=== PATIENT | female | born 1985 | race Caucasian/White ===

== ENCOUNTER 2020-08-31 16:48 | Outpatient (REF) | payer OTHER, SELFPAY | END 2020-08-31 16:49 | disposition home or self-care (01) | LOC: HO.LAB 16:48 | PROVIDERS: Visit Provider Internal Medicine | DX: Z20.828 Contact with and (suspected) exposure to other viral communicable diseases (principal) | CPT/HCPCS: U0003 ==

== ENCOUNTER 2020-09-19 13:12 | Outpatient (REF) | payer OTHER, SELFPAY | END 2020-09-19 13:13 | disposition home or self-care (01) | LOC: HO.LAB 13:12 | PROVIDERS: Visit Provider Internal Medicine | DX: Z20.828 Contact with and (suspected) exposure to other viral communicable diseases (principal) | CPT/HCPCS: C9803; U0003 ==

== ENCOUNTER 2020-10-04 13:29 | Outpatient (REF) | payer OTHER, SELFPAY ==
[2020-10-04 15:25] LABS: HCG Quantitative < 2 mIU/mL
== END 2020-10-04 13:30 | disposition home or self-care (01) ==
LOC: HO.LAB 13:29
PROVIDERS: PCP Internal Medicine; Visit Provider Advanced Practice Midwife
DX: O20.0 Threatened abortion (principal)
CPT/HCPCS: 84702

== ENCOUNTER 2020-10-09 14:57 | Outpatient (REF) | payer OTHER, SELFPAY ==
[2020-10-10 09:22] LABS: BV Int Neg Control Negative (Negative); BV Int Pos Control Positive (Positive)
[2020-10-13 18:12] LABS: CT PCR NOT DETECTED (Not Detect.); NG PCR NOT DETECTED (Not Detect.)
== END 2020-10-09 14:58 | disposition home or self-care (01) ==
LOC: HO.LAB 14:57
PROVIDERS: Visit Provider Advanced Practice Midwife
DX: Z20.2 Contact with and (suspected) exposure to infections with a predominantly sexual mode of transmission (principal); N89.8 Other specified noninflammatory disorders of vagina; Z30.09 Encounter for other general counseling and advice on contraception; R10.2 Pelvic and perineal pain
CPT/HCPCS: 87480; 87491; 87510; 87591; 87660; 99212

== ENCOUNTER 2020-10-16 15:43 | Emergency (ER) | payer OTHER, SELFPAY ==
--- NOTE | 2020-10-16 | ECG_ITS ---
Test Reason : CHESTPAIN Blood Pressure : / mmHG Vent. Rate : 060 BPM Atrial Rate : 060 BPM P-R Int : 152 ms QRS Dur : 082 ms QT Int : 428 ms P-R-T Axes : 014 030 012 degrees QTc Int : 428 ms Normal sinus rhythm Normal ECG When compared with ECG of 22-FEB-2016 21:30, No significant changes seen Referred By: Kelton Garcia Electronically Signed By:Eyal Esposito
[2020-10-16 16:39] VITALS: BP 137/84; PULSE 63; RESP 14; TEMP 36.6; O2SAT 100; BMI 30.2
--- NOTE | 2020-10-16 16:49 | ED.CHESTPAIN ---
HPI - Chest Pain General Chief Complaint: Chest Pain Stated Complaint: CHEST PAIN Time Seen by Provider: 10/16/20 16:48 Source: patient Mode of arrival: ambulatory Limitations: no limitations History of Present Illness HPI narrative: Patient with no known coronary artery disease or risk factors complaining of right-sided chest pain which is sharp for last 2 days denies any shortness of breath or cough , patient got a new job in using the right hand more often also has history of fibromyalgia pain on the right side is continuous get worse on movement of the right hand and on palpation Related Data Previous Rx's Medication Instructions Recorded medroxyprogesterone 150 mg/mL 150 mg IM [id number] #1 ml 10/09/20 intramuscular suspension cyclobenzaprine 10 mg PO Q8H #20 tab 10/16/20 ibuprofen 600 mg PO Q6H PRN #20 tab 10/16/20 metronidazole 500 mg tablet 500 mg PO BID 7 Days #14 tab 10/16/20 Allergies Allergy/AdvReac Type Severity Reaction Status Date / Time No Known Allergies Allergy Mild NOT Verified 10/16/20 16:42 [No Known Allergies*] APPLICABLE Review of Systems Review of Systems: REVIEW OF SYSTEMS: Pertinent positives and negatives are stated above in the history. GEN: no fevers, chills, fatigue HEENT: no nasal congestion, sore throat, ear pain NEURO: no headache, dizziness, focal weakness PULM: no cough, shortness of breath CV: no palpitations, LE edema ABD: no abdominal pain, nausea, vomiting, diarrhea : no dysuria, urgency, frequency SKIN: no rash ROS otherwise negative x 10 PMFSH Past Medical History Medical History Carpal tunnel syndrome Ectopic History of fibromyalgia Hx of Lyme disease Surgical History H/O LEEP Family History Family History Father CVD (cardiovascular disease) Diabetes mellitus Mother Hypertension History of fibromyalgia Paternal Aunt Ovarian cancer Paternal Grandmother History of breast cancer Social History Social History Alcohol intake: current Alcohol intake frequency: does not drink Smoking Status: Never smoker Use of substances other than those prescribed or required for medical reasons: No Advance Directives: No Advance Directives Information Provided: No Physical Exam Vital Signs: Vital Signs: Last Vital Signs Temp 98 F 10/16/20 16:39 Pulse 63 10/16/20 16:39 Resp 14 10/16/20 16:39 BP 137/84 10/16/20 16:39 Pulse Ox 100 10/16/20 16:39 Body Mass Index 30.2 Appearance: Alert. Oriented X3. No acute distress. Eyes: Pupils equal, round and reactive to light. ENT: Pharynx normal. Neck: Normal inspection. Neck supple. CVS: Normal heart rate and rhythm. Pulses normal. Right anterior chest wall tenderness on palpation Respiratory: No respiratory distress. Breath sounds normal. Abdomen: Soft and nontender. Skin: Skin warm and dry. Normal skin color. Normal skin turgor. Extremities: No lower extremity edema. Good range of movement Neuro: Oriented X 3. No motor deficit. No sensory deficit. MDM - Chest Pain Differential Diagnosis Differential diagnosis: Likely atypical chest pain and costochondritis Medical Records Data Attestation: I reviewed the patient's medical records. ECG Data ECG #1: Attestation: I personally reviewed and interpreted this ECG as follows: Interpretation: Normal sinus rhythm with heart rate of 60 normal intervals normal axis no acute ST T wave changes impression: normal EKG Discharge Plan Discharge Clinical Impression: Anterior chest wall pain Patient Disposition: Home, Self-Care Instructions: Chest Wall Pain (ED) Additional Instructions: Rest to the right arm, apply ice take pain medication as advised Prescriptions: New cyclobenzaprine 10 mg tablet 10 mg PO Q8H Qty: 20 RF: 0 ibuprofen 600 mg tablet 600 mg PO Q6H PRN (Reason: pain) Qty: 20 RF: 0 No Action metronidazole [Flagyl] 500 mg tablet 500 mg PO BID 7 Days Qty: 14 RF: 0 medroxyprogesterone [Depo-Provera] 150 mg/mL suspension 150 mg IM [id number] Qty: 1 RF: 3 Interventions: ED Discharge Assessment Last Done: 10/16/20 17:15 Discharge Date/Time: 10/16/20 17:18
[2020-10-16] MEDS: NaPROXEN 500 MG TABLET PO (17:12)
== END 2020-10-16 17:18 | disposition home or self-care (01) ==
PROVIDERS: Emergency Provider Internal Medicine; PCP Internal Medicine
DX: R07.89 Other chest pain (principal)
CPT/HCPCS: 93005; 99283; 99284

== ENCOUNTER 2021-04-11 08:10 | Outpatient (REF) | payer OTHER, SELFPAY ==
[2021-04-11 14:00] LABS: CT PCR NOT DETECTED (Not Detect.); NG PCR NOT DETECTED (Not Detect.)
[2021-04-12 09:39] LABS: BV Int Neg Control Negative (Negative); BV Int Pos Control Positive (Positive)
== END 2021-04-11 08:11 | disposition home or self-care (01) ==
LOC: HO.LAB 08:10
PROVIDERS: PCP Internal Medicine; Visit Provider Advanced Practice Midwife
DX: Z11.3 Encounter for screening for infections with a predominantly sexual mode of transmission (principal); Z20.2 Contact with and (suspected) exposure to infections with a predominantly sexual mode of transmission; N89.8 Other specified noninflammatory disorders of vagina
CPT/HCPCS: 81003; 87480; 87491; 87510; 87591; 87660

== ENCOUNTER 2021-05-02 13:32 | Outpatient (REF) | payer OTHER, SELFPAY ==
[2021-05-02 13:53] LABS: MANUAL DIFF FLAG NO
[2021-05-02 13:59] LABS: Basophils Absolute Auto 0.1 X10*3/uL (0.0-0.2); Basophils Percent Auto 0.6 % (0-2); Eosinophils Percent Auto 0.4 % (0-4); Hematocrit 35.8 % (37-47); Hemoglobin 11.2 g/dl (12.0-16.0); Imm Gran Abs Auto 0.03 X10*3/uL (0.00-0.03); Imm Gran Pct Auto 0.3 % (0.0-0.4); Lymphocytes Absolute Auto 2.5 X10*3/uL (1.2-4.9); Lymphocytes Percent Auto 27.9 % (20-40); Mean Corpuscular HGB Conc 31.3 g/dl (31.0-35.0); Mean Corpuscular Hemoglobin 24.7 pg (27.0-33.0); Mean Corpuscular Volume 78.9 fL (80-98); Mean Platelet Volume 10.5 fL (9.4-12.3); Monocytes Absolute Auto 0.5 X10*3/uL (0.1-1.2); Monocytes Percent Auto 5.8 % (2-11); Neutrophils Absolute Auto 5.8 X10*3/uL (2.0-8.3); Platelet Count 329 X10*3/uL (160-400); Red Blood Count 4.54 X10*6/uL (4.20-5.50); Red Cell Distribution Width 15.3 % (11.0-16.0); White Blood Count 8.9 X10*3/uL (4.8-10.8)
[2021-05-02 14:55] LABS: Syphilis Screen Nonreactive (Nonreactive)
[2021-05-02 15:13] LABS: Alanine Aminotransferase 10 U/L (0-31); Albumin Level 4.2 g/dL (3.5-5.0); Alkaline Phosphatase 52 U/L (39-117); Anion Gap 10 (12-20); Aspartate Amino Transferase 16 U/L (5-31); Bilirubin Total 0.2 mg/dL (0.0-1.0); Blood Urea Nitrogen 11 mg/dL (9-16); Calcium 9.4 mg/dL (8.4-10.2); Carbon Dioxide 27 mmol/L (22-29); Chloride 107 mmol/L (96-108); Estimated Glomerular Filt Rate > 60; Glucose Random 87 mg/dL (60-115); Potassium 4.4 mmol/L (3.3-5.1); Sodium 140 mmol/L (135-145); Total Protein 6.8 g/dL (6.5-8.0)
[2021-05-04 04:26] LABS: HBS Num1 214.51 mIU/mL (0-7.99); HBc Num1 0.02 S/CO (0.00-0.79); HBsAGNum1 0.19 S/CO (0.00-0.99); HIV AB/AG Nonreactive (Nonreactive); HIV Num 1 0.08 S/CO (0.00-0.99); Hepatitis B Core Antibody Nonreactive (Nonreactive); Hepatitis B Surface Antigen Negative (Negative); ~Hepatitis B Surface Antibody REACTIVE (Nonreactive)
[2021-05-04 04:38] LABS: ~HepC Num1 0.05 S/CO (0.00-0.79); ~Hepatitis C Antibody Nonreactive (Nonreactive)
[2021-05-08 13:37] LABS: HSV 1 IgM IFA Positive (Negative); HSV 1 IgM Titer 1:20 (<1:20); HSV 2 IgM IFA Positive (Negative); HSV 2 IgM Titer 1:20 (<1:20)
== END 2021-05-02 13:33 | disposition home or self-care (01) ==
LOC: HO.LAB 13:32
PROVIDERS: PCP Internal Medicine; Visit Provider Internal Medicine
DX: Z01.84 Encounter for antibody response examination (principal); Z11.59 Encounter for screening for other viral diseases; Z11.4 Encounter for screening for human immunodeficiency virus [HIV]; R10.11 Right upper quadrant pain; R53.83 Other fatigue; E66.9 Obesity, unspecified; Z20.2 Contact with and (suspected) exposure to infections with a predominantly sexual mode of transmission
CPT/HCPCS: 36415; 80053; 84443; 85025; 86695; 86696; 86704; 86706; 86780; 86803; 87340; 87389

== ENCOUNTER → 2021-05-18 11:37 | Outpatient (BNVA) | payer OTHER, SELFPAY | PROVIDERS: Visit Provider Advanced Practice Midwife ==

== ENCOUNTER 2021-05-22 11:12 | Outpatient (REF) | payer OTHER, SELFPAY ==
--- NOTE | ~2021-05-22 | US_ITS ---
EXAMINATION: PELVIC ULTRASOUND CLINICAL INFORMATION: Pelvic pain COMPARISON: Previous pelvic ultrasound June 2015 TECHNIQUE: Transabdominal and transvaginal pelvic ultrasound was performed. Transvaginal exam was ordered uterus and ovaries. FINDINGS: The uterus is anteverted and measures 10.8 x 3.9 x 6.6 cm in dimension. No focal uterine lesion is seen. The endometrium appears thickened measuring 2.4 cm. There is a 0.2 x 0.3 x 0.3 cm cyst in the endometrium with thick echogenic wall questionable for a gestational sac. Mean sac diameter would suggest gestational age of 4 weeks 5 days. There are nabothian cysts in the cervix. The right ovary measures 2.1 x 1.6 x 1.2 cm. There is a 0.5 cm nonspecific hyperechoic area in the right ovary. This is not appreciated on previous exam. The left ovary measures 4.7 x 2 x 2.2 cm. There are 2 left ovarian cysts. There is a 1.9 x 1.4 x 2.4 minimally complex cyst with single septation and a 1.2 x 0.9 x 1.1 cm exophytic simple cyst. There is no fluid in the pelvis. US/US pelvic and transvaginal IMPRESSION: Thickened endometrium. 2 x 3 x 3 mm cyst in the endometrium with thick echogenic wall questionable for a gestational sac. Mean sac diameter would suggest gestational age of 4 weeks 5 days. Small left ovarian cysts.
== END 2021-05-22 11:13 | disposition home or self-care (01) ==
LOC: HO.US 11:12
PROVIDERS: PCP Internal Medicine; Visit Provider Advanced Practice Midwife
DX: R10.2 Pelvic and perineal pain (principal)
CPT/HCPCS: 76830; 76856

== ENCOUNTER 2021-05-24 12:55 | Outpatient (REF) | payer OTHER, SELFPAY ==
[2021-05-24 14:45] LABS: HCG Quantitative 2654 mIU/mL
== END 2021-05-24 12:56 | disposition home or self-care (01) ==
LOC: HO.LAB 12:55
PROVIDERS: PCP Internal Medicine; Visit Provider Advanced Practice Midwife
DX: Z34.90 Encounter for supervision of normal pregnancy, unspecified, unspecified trimester (principal); Z87.59 Personal history of other complications of pregnancy, childbirth and the puerperium
CPT/HCPCS: 36415; 84702

== ENCOUNTER 2021-05-28 11:38 | Outpatient (REF) | payer OTHER, SELFPAY ==
[2021-05-28 13:17] LABS: HCG Quantitative 7703 mIU/mL
== END 2021-05-28 11:39 | disposition home or self-care (01) ==
LOC: HO.LAB 11:38
PROVIDERS: PCP Internal Medicine; Visit Provider Advanced Practice Midwife
DX: Z34.90 Encounter for supervision of normal pregnancy, unspecified, unspecified trimester (principal); Z87.59 Personal history of other complications of pregnancy, childbirth and the puerperium
CPT/HCPCS: 36415; 84702

== ENCOUNTER 2021-05-31 13:06 | Outpatient (REF) | payer OTHER, SELFPAY ==
--- NOTE | ~2021-05-31 | US_ITS ---
EXAMINATION: ULTRASOUND OB PELVIC AND TRANSVAGINAL CLINICAL INFORMATION: History of ectopic . COMPARISON: Ultrasound OB 02/11/2020 TECHNIQUE: Transabdominal and transvaginal imaging of pelvis is performed. FINDINGS: There is a single intrauterine gestational sac and a single pole. The crown-rump length measures 0.26 cm corresponding to 5 weeks 6 days and ATUL of 01/25/2022. Based on LMP of 04/17/2021 the clinical gestational age is 6 weeks 2 days and ATUL of 01/22/2022. There is visualization of pole, yolk sac, gestational sac and a heart rate of 110 bpm. The right ovary measures 2.6 x 1.7 x 1.7 cm and appears unremarkable. The left ovary measures 4.7 x 2.1 x 2.9 cm. There is a small corpus luteal cyst measuring 2.4 x 1.4 x 2.5 cm. There is no free fluid in cul-de-sac. US/US OB pelvic and transvaginal IMPRESSION: Single live intrauterine fetus with a crown-rump length measuring 5 weeks and 6 days and ATUL of 01/25/2022. There is a small corpus luteal cyst in the left ovary.
== END 2021-05-31 13:07 | disposition home or self-care (01) ==
LOC: HO.HMGCX 13:06
PROVIDERS: PCP Internal Medicine; Visit Provider Advanced Practice Midwife
DX: Z34.91 Encounter for supervision of normal pregnancy, unspecified, first trimester (principal)
CPT/HCPCS: 76801; 76817

== ENCOUNTER → 2021-06-05 15:45 | Outpatient (BNVA) | payer OTHER, SELFPAY | PROVIDERS: PCP Internal Medicine; Visit Provider Advanced Practice Midwife ==

== ENCOUNTER → 2021-06-11 14:19 | Outpatient (BNVA) | payer OTHER, SELFPAY | PROVIDERS: PCP Internal Medicine; Visit Provider Advanced Practice Midwife | DX: R79.89 Other specified abnormal findings of blood chemistry (principal); Z64.0 Problems related to unwanted pregnancy | CPT/HCPCS: 99212 ==

== ENCOUNTER 2021-07-02 20:57 | Emergency (ER) | payer OTHER, SELFPAY ==
[2021-07-02 21:36] VITALS: BP 145/74; PULSE 87; RESP 15; TEMP 37; O2SAT 100; BMI 26.5
[2021-07-02] MEDS: Ondansetron ODT 4 MG TAB.RAPDIS SUBLINGUAL (21:42)
[2021-07-02 23:38] LABS: Basophils Absolute Auto 0.1 X10*3/uL (0.0-0.2); Basophils Percent Auto 0.3 % (0-2); Eosinophils Percent Auto 0.3 % (0-4); Hematocrit 36.1 % (37-47); Hemoglobin 11.6 g/dl (12.0-16.0); Imm Gran Abs Auto 0.08 X10*3/uL (0.00-0.03); Imm Gran Pct Auto 0.5 % (0.0-0.4); Lymphocytes Absolute Auto 2.4 X10*3/uL (1.2-4.9); Lymphocytes Percent Auto 15.5 % (20-40); Mean Corpuscular HGB Conc 32.1 g/dl (31.0-35.0); Mean Corpuscular Hemoglobin 25.2 pg (27.0-33.0); Mean Corpuscular Volume 78.3 fL (80-98); Mean Platelet Volume 10.3 fL (9.4-12.3); Monocytes Percent Auto 6.3 % (2-11); Neutrophils Absolute Auto 12.1 X10*3/uL (2.0-8.3); Neutrophils Percent Auto 77.1 % (45-73); Platelet Count 331 X10*3/uL (160-400); Red Blood Count 4.61 X10*6/uL (4.20-5.50); Red Cell Distribution Width 14.7 % (11.0-16.0); White Blood Count 15.7 X10*3/uL (4.8-10.8)
[2021-07-02 23:39] LABS: MANUAL DIFF FLAG NO
[2021-07-02 23:52] LABS: Alanine Aminotransferase 12 U/L (0-31); Albumin Level 4.1 g/dL (3.5-5.0); Alkaline Phosphatase 52 U/L (39-117); Anion Gap 13 (12-20); Aspartate Amino Transferase 14 U/L (5-31); Bilirubin Direct < 0.2 mg/dL (0.0-0.5); Bilirubin Total 0.3 mg/dL (0.0-1.0); Blood Urea Nitrogen 7 mg/dL (9-16); Calcium 9.5 mg/dL (8.4-10.2); Carbon Dioxide 21 mmol/L (22-29); Chloride 107 mmol/L (96-108); Creatinine Clr Calc Pharmacy 110.2; Estimated Glomerular Filt Rate > 60; Glucose Random 97 mg/dL (60-115); Lipase 25 U/L (8-78); Potassium 3.9 mmol/L (3.3-5.1); Sodium 137 mmol/L (135-145); Total Protein 7.1 g/dL (6.5-8.0)
[2021-07-03 00:27] VITALS: BP 114/75; PULSE 74; RESP 12; TEMP 36.9; O2SAT 100
[2021-07-03 00:36] LABS: Glucose Urine UA NEG (NEG); Leukocyte Esterase Urine NEG (NEG); Nitrite Urine NEG (NEG); PH 6.5 (5.0-8.0); Specific Gravity - Urine 1.025 (1.005-1.025); UACC Culture Trigger NO; Urine Blood NEG (NEG); Urine Ketones 40 MG/DL (NEG); Urine Protein 1+ MG/DL (NEG-TRACE)
[2021-07-03 00:39] LABS: Appearance Urine HAZY; Color Urine DARK YELLOW
[2021-07-03 00:51] LABS: Bacteria Urine TRACE /LPF; Mucus Urine 4+ /LPF; RBC Urine 0 /HPF (0); Squamous Epithelial Cell Urine 1+ /LPF; WBC Urine 0-2 /HPF (0-4)
[2021-07-03 00:58] LABS: COVID-19 Test Negative (Negative); IDNOW Serial# 9DD0AD1C
[2021-07-03] MEDS: 0.9 % Sodium Chloride 2,000 ML 999 ML IV (01:22)
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
[2021-07-03 03:28] VITALS: BP 124/74; PULSE 75; RESP 22; O2SAT 100
== END 2021-07-03 04:20 | disposition home or self-care (01) ==
PROVIDERS: Emergency Provider Student in an Organized Health Care Education/Training Program; PCP Internal Medicine
DX: O21.1 Hyperemesis gravidarum with metabolic disturbance (principal); Z3A.10 10 weeks gestation of pregnancy; Z79.899 Other long term (current) drug therapy; Z20.822 Contact with and (suspected) exposure to COVID-19
CPT/HCPCS: 36415; 80048; 80076; 81001; 83690; 85025; 87635; 96360; 96361; 99284

== ENCOUNTER 2021-07-13 12:27 | Emergency (ER) | payer OTHER, SELFPAY ==
[2021-07-13] VITALS (7 sets, daily range): BP systolic 106–131; BP diastolic 52–85; PULSE 66–80; RESP 16–18; TEMP 36.8–37.5; O2SAT 99–100; BMI 29.2
--- NOTE | ~2021-07-13 | CT_ITS ---
EXAMINATION: CT ABDOMEN AND PELVIS WITH CONTRAST CLINICAL INFORMATION: Therapeutic today. Severe abdominal pain. COMPARISON: 07/11/2020 TECHNIQUE: Multidetector volumetric images were obtained from the superior aspect of the liver through the pubic symphysis following administration 85 mL of Omnipaque 350 intravenous contrast. Sagittal and coronal reformatted images were obtained on the technologist's workstation. Oral contrast: No This CT examination was performed using dose optimization techniques as appropriate, variously including the following: *Automated exposure control *Adjustment of mA and/or kV according to patient size (this includes techniques or standardized protocols for targeted exams where dose is matched to indication/reason for exam; i.e. extremities or head) *Use of iterative reconstruction technique DLP: 581 mGy-cm FINDINGS: LUNG BASES: The visualized lung bases are unremarkable. LIVER, GALLBLADDER, AND BILIARY TREE: The liver is normal in size, shape, and attenuation. No focal hepatic lesion or biliary ductal dilatation is present. The gallbladder is unremarkable with no evidence of radiopaque gallstones, gallbladder wall thickening, or obvious pericholecystic inflammatory changes. PANCREAS: Unremarkable. SPLEEN: Unremarkable. ADRENAL GLANDS: Unremarkable. KIDNEYS AND URETERS: The kidneys are normal in size, shape, and attenuation. No hydronephrosis, hydroureter, or calculi seen. No perinephric stranding. BLADDER: Unremarkable. GASTROINTESTINAL TRACT: The small and large bowel are unremarkable. The appendix is unremarkable. ABDOMINAL WALL: No significant hernia is appreciated. LYMPH NODES: Normal. VASCULAR: Unremarkable. PELVIC VISCERA: Anteverted uterus. Enlarged uterus consistent with recent gravid state with diffuse heterogeneity. Fluid in the upper vagina noted with gas seen in the cervix. OSSEOUS STRUCTURES: Unremarkable. CT/CT abdomen pelvis w con IMPRESSION: Enlarged heterogeneous uterus cyst with recent gravid state. Gas in the cervical canal with fluid in the vagina. No free intraperitoneal air. No significant pelvic fluid.
[2021-07-13 13:21] LABS: Basophils Absolute Auto 0.1 X10*3/uL (0.0-0.2); Basophils Percent Auto 0.3 % (0-2); Hematocrit 32.4 % (37-47); Hemoglobin 10.6 g/dl (12.0-16.0); Imm Gran Abs Auto 0.39 X10*3/uL (0.00-0.03); Imm Gran Pct Auto 1.2 % (0.0-0.4); Lymphocytes Absolute Auto 1.9 X10*3/uL (1.2-4.9); Lymphocytes Percent Auto 5.9 % (20-40); MANUAL DIFF FLAG SCAN; Mean Corpuscular HGB Conc 32.7 g/dl (31.0-35.0); Mean Corpuscular Hemoglobin 25.6 pg (27.0-33.0); Mean Corpuscular Volume 78.3 fL (80-98); Mean Platelet Volume 10.5 fL (9.4-12.3); Monocytes Absolute Auto 1.8 X10*3/uL (0.1-1.2); Monocytes Percent Auto 5.6 % (2-11); Neutrophils Absolute Auto 28.5 X10*3/uL (2.0-8.3); Platelet Count 248 X10*3/uL (160-400); Red Blood Count 4.14 X10*6/uL (4.20-5.50); Red Cell Distribution Width 14.6 % (11.0-16.0); SCAN SMEAR FLAG 1
[2021-07-13 13:23] LABS: White Blood Count 32.8 X10*3/uL (4.8-10.8)
--- NOTE | 2021-07-13 13:25 | PC.NURSE ---
critical wbc reported 32.8 reported to md saucedo
[2021-07-13] MEDS: Ondansetron ODT 4 MG TAB.RAPDIS SUBLINGUAL (13:28)
[2021-07-13 13:37] LABS: Alanine Aminotransferase 6 U/L (0-31); Albumin Level 4.1 g/dL (3.5-5.0); Alkaline Phosphatase 50 U/L (39-117); Anion Gap 15 (12-20); Aspartate Amino Transferase 13 U/L (5-31); Bilirubin Total 0.7 mg/dL (0.0-1.0); Blood Urea Nitrogen 11 mg/dL (9-16); Calcium 9.8 mg/dL (8.4-10.2); Carbon Dioxide 20 mmol/L (22-29); Chloride 106 mmol/L (96-108); Creatinine Clr Calc Pharmacy 93.6; Estimated Glomerular Filt Rate > 60; Glucose Random 125 mg/dL (60-115); Potassium 4.1 mmol/L (3.3-5.1); Sodium 137 mmol/L (135-145); Total Protein 6.9 g/dL (6.5-8.0)
[2021-07-13 13:39] LABS: SLIDE REVIEW VERIFIED
[2021-07-13] MEDS: Acetaminophen 325 MG TABLET 650 MG PO (15:15)
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
[2021-07-13] MEDS: Morphine Sulfate 4 MG/ML CARTRIDGE IVPUSH ×2 (16:41→19:13)
[2021-07-13] MEDS: 0.9 % Sodium Chloride 1,000 ML 999 ML IV (16:41)
[2021-07-13] MEDS: ondansetron HCL 4 MG/2 ML VIAL IVPUSH (16:41)
[2021-07-13] MEDS: Piperacillin Sodium/Tazobactam 4.5 GM in 0.9 % Sodium Chloride 100 ML IV (16:54)
[2021-07-13 16:58] LABS: Lactic Acid 2.2 mmol/L (0.5-2.0)
[2021-07-13 17:09] LABS: Lipase 25 U/L (8-78)
[2021-07-13] MEDS: iohexoL 350 MG/ML 100 ML INFUS..BTL IV (17:19)
[2021-07-13] MEDS: 0.9 % Sodium Chloride 2,177.25 ML 2177.25 ML IV (17:42)
[2021-07-13 18:29] LABS: COVID-19 Test Negative (Negative)
[2021-07-13 18:34] LABS: Reflex Lactate? Lactic Acid Added
[2021-07-13 18:38] LABS: HCG Quantitative 9100 mIU/mL
[2021-07-13 19:09] LABS: Appearance Urine HAZY; Color Urine YELLOW; Glucose Urine UA NEG (NEG); Leukocyte Esterase Urine NEG (NEG); Nitrite Urine NEG (NEG); Specific Gravity - Urine <= 1.005 (1.005-1.025); UACC Culture Trigger NO; Urine Blood 3+ (NEG); Urine Ketones 15 MG/DL (NEG); Urine Protein TRACE MG/DL (NEG-TRACE)
[2021-07-13 19:21] LABS: Bacteria Urine TRACE /LPF; RBC Urine 50-75 /HPF (0); Squamous Epithelial Cell Urine TRACE /LPF; WBC Urine 0-2 /HPF (0-4)
== END 2021-07-13 20:03 | disposition home or self-care (01) ==
PROVIDERS: Emergency Provider Emergency Medicine Emergency Medical Services; PCP Internal Medicine
DX: R10.2 Pelvic and perineal pain (principal); Z20.822 Contact with and (suspected) exposure to COVID-19; Z79.899 Other long term (current) drug therapy
CPT/HCPCS: 36415; 74177; 80053; 81001; 83605; 83690; 84702; 85025; 86850; 86900; 86901; 87040; 87635; 96361; 96374; 96375; 96376; 99284; J2270; J2405; J2543; Q9967

== ENCOUNTER 2021-07-18 05:15 | Day surgery (SDC) | payer OTHER, SELFPAY ==
[2021-07-18] VITALS (10 sets, daily range): BP systolic 111–134; BP diastolic 56–95; PULSE 68–87; RESP 17–18; TEMP 36.3–37.1; O2SAT 99–100; BMI 26.6
--- NOTE | ~2021-07-18 | US_ITS ---
EXAMINATION: US PELVIS CLINICAL INFORMATION: Post therapeutic 07/11/2021. Bleeding/clot. COMPARISON: None TECHNIQUE: Ultrasound of the pelvis is performed using both transabdominal and transvaginal transducers along with Doppler. Transvaginal imaging is performed due to inadequate visualization transabdominally. FINDINGS: The uterus is anteverted and measures 12.8 x 6.3 x 7.9 cm. No focal uterine lesion is seen. The endometrium is thickened measuring 2.4 cm. There is some fluid seen in the endometrial cavity. The endometrium does not appear hypervascular. The ovaries are normal. The right ovary measures 2.3 x 1.1 x 2.3 cm. The left ovary measures 2.9 x 2.3 x 1.9 cm. There is no fluid in the pelvis. US/US pelvic complete IMPRESSION: Abnormally thickened endometrium measuring 2.4 cm with fluid in the endometrial cavity. The endometrium does not appear hypervascular. Differential would include blood clot, endometritis or retained products of conception.
--- NOTE | ~2021-07-18 | US_ITS ---
EXAMINATION: US pelvic, LIMITED/FOLLOW UP CLINICAL INFORMATION: Retained products of conception COMPARISON: Previous pelvic ultrasound from earlier the same day TECHNIQUE/findings: Intraoperative transabdominal pelvic ultrasound was performed during procedure. There is a small amount of fluid in seen in the endometrial cavity. There is air in the endometrial cavity postprocedure. US/US pelvic limited IMPRESSION: :
--- NOTE | 2021-07-18 05:30 | PC.NURSE ---
patient in the restroom in the waiting room, unable to triage at this time. patient given wheel chair stating feeling dizzy, say the asphalt spreader today. has been passing clots asking to get an ambulance to [facility] where she would like to receive care.
[2021-07-18 06:03] LABS: Basophils Percent Auto 0.4 % (0-2); Eosinophils Absolute Auto 0.1 X10*3/uL (0.0-0.4); Eosinophils Percent Auto 1.1 % (0-4); Hematocrit 25.7 % (37-47); Hemoglobin 8.3 g/dl (12.0-16.0); Imm Gran Abs Auto 0.15 X10*3/uL (0.00-0.03); Imm Gran Pct Auto 1.4 % (0.0-0.4); Lymphocytes Absolute Auto 1.9 X10*3/uL (1.2-4.9); Lymphocytes Percent Auto 17.6 % (20-40); MANUAL DIFF FLAG NO; Mean Corpuscular HGB Conc 32.3 g/dl (31.0-35.0); Mean Corpuscular Hemoglobin 26.2 pg (27.0-33.0); Mean Corpuscular Volume 81.1 fL (80-98); Mean Platelet Volume 10.4 fL (9.4-12.3); Monocytes Absolute Auto 0.7 X10*3/uL (0.1-1.2); Monocytes Percent Auto 6.5 % (2-11); Neutrophils Absolute Auto 7.9 X10*3/uL (2.0-8.3); Platelet Count 233 X10*3/uL (160-400); Red Blood Count 3.17 X10*6/uL (4.20-5.50); Red Cell Distribution Width 14.8 % (11.0-16.0); White Blood Count 10.8 X10*3/uL (4.8-10.8)
[2021-07-18 06:21] LABS: Alanine Aminotransferase 9 U/L (0-31); Albumin Level 3.5 g/dL (3.5-5.0); Alkaline Phosphatase 41 U/L (39-117); Anion Gap 11 (12-20); Aspartate Amino Transferase 12 U/L (5-31); Bilirubin Total 0.3 mg/dL (0.0-1.0); Blood Urea Nitrogen 8 mg/dL (9-16); Calcium 8.7 mg/dL (8.4-10.2); Carbon Dioxide 22 mmol/L (22-29); Chloride 110 mmol/L (96-108); Creatinine Clr Calc Pharmacy 113.1; Estimated Glomerular Filt Rate > 60; Glucose Random 109 mg/dL (60-115); Potassium 3.7 mmol/L (3.3-5.1); Sodium 139 mmol/L (135-145); Total Protein 5.9 g/dL (6.5-8.0)
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
[2021-07-18 07:35] LABS: HCG Quantitative 234 mIU/mL
--- NOTE | 2021-07-18 08:16 | PC.NURSE ---
pt in bathroom, large clot on pad and pt has s large amount of blood inthe toilet. PCT completing Type and screen now
[2021-07-18] MEDS: 0.9 % Sodium Chloride 1,000 ML 999 ML IV (08:39)
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
--- NOTE | 2021-07-18 09:34 | PC.NURSE ---
pt tearful, feeling scared. aware of plan to go to OR. Pt educated on change management manager and medication administration. Awaiting COVID results before transport
[2021-07-18 09:39] LABS: COVID-19 Test Negative (Negative)
--- NOTE | 2021-07-18 10:37 | P.BOP_ITS ---
Brief Operative Note Date of Service: 07/18/21 Pre-op diagnosis: Retained products of conception Post-op diagnosis: same Procedure: Suction D&C Surgeon: Michel Duncan MD Anesthesia: MAC Was an Social Media Coordinator used for this Procedure?: No Estimated blood loss (mL): 100 Pathology: other (Products of conception) Condition: stable Disposition: PACU
--- NOTE | 2021-07-18 10:37 | P.OP_ITS ---
Operative Note Operative Note Date of Service: 07/18/21 Narrative: Preop diagnosis: Retained products of conception Operation: suction D and C under ultrasound guidance Postop diagnosis: The same EBL: 100 cc Anesthesia: MAC Surgeon: Michel Duncan MD, FACOG Avionics Test Technician: None Pathology: Retained Products of conception Complications: None Procedure: The patient was put in a dorsal distal mid position was scrubbed and draped in the usual sterile fashion. A sterile speculum was inserted inside the patient's vagina the anterior lip of the cervix was grasped with single-tooth tenaculum the cervix was dilated up to 7 mm. Under ultrasonographic guidance flexible 8 mm. Suction tip was introduced inside the patient ran cavity till the fundus was hit then turning the suction 360 degrees around products of conception was sucked out toward the uterine cavity. The suction tip was taken out of the patient uterine cavity sharp curettings was followed in 4 quadrants of the uterus till a gritty feeling was felt. The suction tip was reintroduced under ultrasonographic guidance and intrauterine blood was sucked. The suction tip was taken out. Single-tooth tenaculum was removed hemostasis assured using pressure. The patient tolerated the procedure well and was transferred to the PACU in a stable condition.
== END 2021-07-18 12:07 | disposition home or self-care (01) ==
LOC: HO.ED 10:47 → HO.SSS 11:56
PROVIDERS: Emergency Provider Emergency Medicine; PCP Internal Medicine; Visit Provider Obstetrics & Gynecology
PROC: (CPT 59812; principal; 2021-07-18 09:40)
DX: O07.39 Failed attempted termination of pregnancy with other complications (principal); O07.1 Delayed or excessive hemorrhage following failed attempted termination of pregnancy; D64.9 Anemia, unspecified; Z20.822 Contact with and (suspected) exposure to COVID-19; Z87.59 Personal history of other complications of pregnancy, childbirth and the puerperium
CPT/HCPCS: 59812; 36415; 36430; 76856; 76857; 80053; 84702; 85025; 86850; 86900; 86901; 86923; 87491; 87591; 87635; 88305; 96361; 96374; 96375; 99283; 99284; 99291; J0330; J2250; J2405; J2590; J2765; J3010; P9016

== ENCOUNTER → 2021-08-07 12:14 | Outpatient (BNVA) | payer OTHER, SELFPAY | PROVIDERS: Visit Provider Obstetrics & Gynecology ==

== ENCOUNTER 2021-09-11 08:16 | Outpatient (REF) | payer OTHER, SELFPAY ==
[2021-09-11 08:54] LABS: COVID-19 Test Negative (Negative)
== END 2021-09-11 08:17 | disposition home or self-care (01) ==
LOC: HO.LAB 08:16
PROVIDERS: PCP Internal Medicine; Visit Provider Internal Medicine
DX: Z20.822 Contact with and (suspected) exposure to COVID-19 (principal)
CPT/HCPCS: 36415; 87635; C9803

== ENCOUNTER 2021-10-23 10:09 | Outpatient (REF) | payer OTHER, SELFPAY ==
[2021-10-23 10:57] LABS: Hematocrit 38.3 % (37.0-47.0); Hemoglobin 11.7 g/dl (12.0-16.0); Mean Corpuscular HGB Conc 30.5 g/dl (31.0-35.0); Mean Corpuscular Hemoglobin 24.3 pg (27.0-33.0); Mean Corpuscular Volume 79.5 fL (80.0-98.0); Mean Platelet Volume 11.7 fL (9.4-12.3); Platelet Count 148 X10*3/uL (160-400); Red Blood Count 4.82 X10*6/uL (4.20-5.50); Red Cell Distribution Width 15.3 % (11.0-16.0); White Blood Count 9.2 X10*3/uL (4.8-10.8)
[2021-10-23 11:28] LABS: HCG Quantitative < 2 mIU/mL
== END 2021-10-23 10:10 | disposition home or self-care (01) ==
LOC: HO.LAB 10:09
PROVIDERS: PCP Internal Medicine; Visit Provider Obstetrics & Gynecology
DX: D64.9 Anemia, unspecified (principal); R53.83 Other fatigue; M79.7 Fibromyalgia; Z86.61 Personal history of infections of the central nervous system
CPT/HCPCS: 36415; 84702; 85027

== ENCOUNTER 2021-11-07 11:44 | Outpatient (REF) | payer OTHER, SELFPAY ==
[2021-11-07 14:02] LABS: Binax Internal Control QC Valid; Binax Now Covid-19 Ag Negative (Negative)
== END 2021-11-07 11:45 | disposition home or self-care (01) ==
LOC: HO.LAB 11:44
PROVIDERS: Visit Provider Internal Medicine
DX: Z20.822 Contact with and (suspected) exposure to COVID-19 (principal)
CPT/HCPCS: 36415; C9803

== ENCOUNTER 2021-12-18 10:19 | Outpatient (REF) | payer OTHER, SELFPAY ==
[2021-12-18 14:12] LABS: CT PCR NOT DETECTED (Not Detect.); NG PCR NOT DETECTED (Not Detect.)
[2021-12-19 13:10] LABS: BV Int Neg Control Negative (Negative); BV Int Pos Control Positive (Positive)
== END 2021-12-18 10:20 | disposition home or self-care (01) ==
LOC: HO.LAB 10:19
PROVIDERS: Visit Provider Advanced Practice Midwife
DX: N76.0 Acute vaginitis (principal); Z20.2 Contact with and (suspected) exposure to infections with a predominantly sexual mode of transmission
CPT/HCPCS: 87480; 87491; 87510; 87591; 87660; 99212

== ENCOUNTER 2022-04-18 09:46 | Outpatient (REF) | payer OTHER, SELFPAY ==
[2022-04-19 01:18] LABS: CT PCR NOT DETECTED (Not Detect.); NG PCR NOT DETECTED (Not Detect.)
[2022-04-19 08:32] LABS: BV Int Neg Control Negative (Negative); BV Int Pos Control Positive (Positive)
[2022-04-22 21:27] LABS: HPV mRNA E6/E7 rflx Not Detected (Not Detected)
== END 2022-04-18 09:47 | disposition home or self-care (01) ==
LOC: HO.LAB 09:46
PROVIDERS: Visit Provider Advanced Practice Midwife
DX: Z01.419 Encounter for gynecological examination (general) (routine) without abnormal findings (principal); Z11.3 Encounter for screening for infections with a predominantly sexual mode of transmission; Z11.51 Encounter for screening for human papillomavirus (HPV)
CPT/HCPCS: 87480; 87491; 87510; 87591; 87624; 87660; 88142

== ENCOUNTER 2022-05-02 09:12 | Outpatient (REF) | payer OTHER, SELFPAY ==
[2022-05-02 11:33] LABS: Alanine Aminotransferase 8 U/L (0-31); Albumin Level 4.5 g/dL (3.5-5.0); Alkaline Phosphatase 54 U/L (39-117); Aspartate Amino Transferase 13 U/L (5-31); Bilirubin Direct < 0.2 mg/dL (0.0-0.5); Bilirubin Total 0.3 mg/dL (0.0-1.0); Lipase 44 U/L (8-78); Total Protein 7.4 g/dL (6.5-8.0)
[2022-05-02 11:42] LABS: HBsAGNum1 0.27 S/CO (0.00-0.99); HIV AB/AG Nonreactive (Nonreactive); HIV Num 1 0.11 S/CO (0.00-0.99); Hepatitis B Surface Antigen Negative (Negative); ~HepC Num1 0.08 S/CO (0.00-0.79); ~Hepatitis C Antibody Nonreactive (Nonreactive)
[2022-05-03 07:44] LABS: Syphilis Screen Nonreactive (Nonreactive)
[2022-05-04 08:27] LABS: Transglutaminase Ab IgG <1.0 U/mL; Transglutaminase IgA <1.0 U/mL
[2022-05-08 17:33] LABS: Vitamin D 25-OH, D2 <4 ng/mL; Vitamin D 25-OH, D3 16 ng/mL; Vitamin D 25-OH, Total 16 ng/mL (30-100)
== END 2022-05-02 09:13 | disposition home or self-care (01) ==
LOC: HO.LAB 09:12
PROVIDERS: Nurse Practitioner Family; PCP Internal Medicine; Visit Provider Advanced Practice Midwife
DX: Z11.4 Encounter for screening for human immunodeficiency virus [HIV] (principal); Z11.3 Encounter for screening for infections with a predominantly sexual mode of transmission; R10.9 Unspecified abdominal pain; E55.9 Vitamin D deficiency, unspecified; R10.84 Generalized abdominal pain; K21.9 Gastro-esophageal reflux disease without esophagitis; K59.01 Slow transit constipation
CPT/HCPCS: 36415; 80076; 82306; 83690; 86364; 86780; 86803; 87340; 87389; 99202; 99212

== ENCOUNTER 2022-10-30 08:35 | Emergency (ER) | payer OTHER, SELFPAY ==
--- NOTE | ~2022-10-30 | CT_ITS ---
EXAMINATION: CT ABDOMEN AND PELVIS WITH CONTRAST CLINICAL INFORMATION: Right lower quadrant/CVA/suprapubic pain COMPARISON: Pelvic ultrasound and CT of the abdomen and pelvis July 2021 TECHNIQUE: Multidetector volumetric images were obtained from the superior aspect of the liver through the pubic symphysis following administration 85 mL of Omnipaque 350 intravenous contrast. Sagittal and coronal reformatted images were obtained on the technologist's workstation. Oral contrast: Yes This CT examination was performed using dose optimization techniques as appropriate, variously including the following: *Automated exposure control *Adjustment of mA and/or kV according to patient size (this includes techniques or standardized protocols for targeted exams where dose is matched to indication/reason for exam; i.e. extremities or head) *Use of iterative reconstruction technique DLP: 805 mGy-cm FINDINGS: LUNG BASES: The visualized lung bases are unremarkable. LIVER, GALLBLADDER, AND BILIARY TREE: The liver is normal in size, shape, and attenuation. No focal hepatic lesion or biliary ductal dilatation is present. The gallbladder is unremarkable with no evidence of radiopaque gallstones, gallbladder wall thickening, or obvious pericholecystic inflammatory changes. PANCREAS: Unremarkable. SPLEEN: Unremarkable. ADRENAL GLANDS: Unremarkable. KIDNEYS AND URETERS: The kidneys are normal in size, shape, and attenuation. No hydronephrosis, hydroureter, or calculi seen. No perinephric stranding. BLADDER: Unremarkable. GASTROINTESTINAL TRACT: The small and large bowel are unremarkable. The appendix is unremarkable. ABDOMINAL WALL: Small umbilical hernia containing fat. LYMPH NODES: Normal. VASCULAR: Unremarkable. PELVIC VISCERA: Question low-attenuation in the cervix. Normal-appearing uterus. The endometrium does not appear thickened. Normal-appearing adnexa. OSSEOUS STRUCTURES: Unremarkable. CT/CT abdomen pelvis w IV con IMPRESSION: Small umbilical hernia containing fat. Question low-attenuation in the cervix. This could be further evaluated with pelvic ultrasound if clinically indicated. Fleischner guidelines were followed.
--- NOTE | ~2022-10-30 | US_ITS ---
EXAMINATION: US PELVIS CLINICAL INFORMATION: Suprapubic pain COMPARISON: Previous CT of the abdomen and pelvis from earlier the same day and pelvic ultrasound July 2021 TECHNIQUE: Ultrasound of the pelvis is performed using both transabdominal and transvaginal transducers along with Doppler. Transvaginal imaging is performed due to inadequate visualization transabdominally. FINDINGS: Uterus is anteverted and measures 12 x 4.8 x 5.4 cm in dimension. No focal uterine lesion. Endometrial thickness is normal measuring 1.1 cm. There is a 1.6 x 0.9 x 0.8 cm solid hypoechoic lesion in the cervix either in or adjacent to the endocervical canal. This demonstrates minimal vascularity. Differential would include a polyp and submucosal fibroid. This measures 1.6 x 0.9 x 0.8 cm. The ovaries are unremarkable. The right ovary measures 3.8 x 2.5 x 2.6 cm. The left ovary measures 3.8 x 1.9 x 2.2 cm. There is a small amount of fluid adjacent to the left ovary. US/US pelvic and transvaginal IMPRESSION: 1.6 x 0.9 x 0.8 cm cervical polyp versus submucosal fibroid. Otherwise unremarkable exam.
[2022-10-30 08:39] VITALS: BP 154/82; PULSE 67; RESP 16; TEMP 36.6; O2SAT 100; BMI 27.4
[2022-10-30 08:57] VITALS: BP 122/69; PULSE 63; RESP 15; TEMP 36.9; O2SAT 100
--- NOTE | 2022-10-30 09:18 | ED_ITS ---
HPI - Abdominal Pain General Chief Complaint: Abdominal Pain Stated Complaint: R abd pain going into leg Time Seen by Provider: 10/30/22 09:06 Source: patient Mode of arrival: ambulatory History of Present Illness HPI narrative: 36-year-old female with a past medical history migraines, obesity, presenting to the ED complaining of acute on chronic right-sided abdominal pain times months worsening over the past few days. States pain radiates to right flank and down right lower extremity. Admits to urinary frequency/hesitancy and nausea. Denies fever, chills, vomiting, diarrhea/constipation, dysuria/hematuria, vaginal bleeding/discharge. MD elicited complaint: abdominal pain and flank pain Onset (ago): month(s) Related Data Previous Rx's Medication Instructions Recorded levonorgestrel 1.5 mg tablet (Plan 1.5 mg PO ONCE #1 tab 04/18/22 B One-Step) metronidazole 500 mg tablet 500 mg PO BID 7 days #14 tabs 04/29/22 methylcellulose (laxative) 500 mg 500 mg PO DAILY #90 tabs 05/02/22 tablet (Citrucel) omeprazole 20 mg capsule,delayed 20 mg PO DAILY #90 caps 05/02/22 release sennosides 8.6 mg tablet (Natural 8.6 mg PO BEDTIME constipation #90 05/02/22 Senna Laxative) tabs cholecalciferol (vitamin D3) 50 50 mcg PO DAILY #90 caps 05/08/22 mcg (2,000 unit) capsule Allergies Allergy/AdvReac Type Severity Reaction Status Date / Time No Known Allergies Allergy Mild NOT Verified 05/02/22 09:30 [No Known Allergies*] APPLICABLE Review of Systems Review of Systems Constitutional: No Fever, No Chills, No Fatigue, No Malaise ENT/Mouth: No Hearing loss, No Ear Pain, No Nasal Congestion, No sore throat, No Rhinorrhea, No Swallowing Difficulty Eyes: No Eye Pain, No Swelling, No Redness, No Vision Changes Cardiovascular: No Chest Pain, No SOB, No Edema, No Palpitations Respiratory: No Cough, No Sputum, No Dyspnea Gastrointestinal: + Nausea, No Vomiting, No Diarrhea, No Constipation, + Abdominal pain Genitourinary: No irregular bleeding, No Dysuria, + Urinary Frequency, No Hematuria, No Urinary Incontinence/retention, No Flank Pain, No Urinary Flow Changes, + Hesitancy Musculoskeletal: No joint pain, No Myalgias, No Joint Swelling Skin: No Skin Lesions, No rash Neuro: No Weakness, No Numbness, No Dizziness, No Headache Yes all other systems are reviewed and are negative Constitutional: Reports as per [facility] Past Medical History Attestation statement: The following information was validated with the patient. Medical History Carpal tunnel syndrome Ectopic Fatigue History of ectopic History of fibromyalgia Hx of Lyme disease Migraine with aura Obesity (BMI 30-39.9) Pelvic pain Possible exposure to STD RUQ abdominal pain Surgical History H/O dilation and curettage H/O LEEP Family History Family History Father CVD (cardiovascular disease) Diabetes mellitus Mother Hypertension History of fibromyalgia Paternal Aunt Ovarian cancer Paternal Grandmother History of breast cancer Social History Social History Housing: Apartment Alcohol intake: never Patient Tobacco Use Status: Never used Tobacco Second Hand Smoke Exposure: No Trauma History: with ex partner and father of her children. The children are in DCF custody currently awaiting trial for unification. Advance Directives: No Advance Directives Information Provided: No service: No Current occupational status: unemployed Physical Exam ED Vital Signs: Vital Signs - 24 hr 10/30/22 08:39 10/30/22 08:57 10/30/22 11:42 Temperature 97.9 F 98.4 F 98.6 F Pulse Rate 67 63 61 Respiratory Rate 16 15 15 Blood Pressure 154/82 H 122/69 134/81 Pulse Oximetry 100 100 100 Oxygen Delivery Method Room Air Room Air Room Air BMI result Body Mass Index 27.4 Const General: cooperative, healthy appearing and no acute distress Orientation/consciousness: patient oriented x3 Limitations: no limitations HENMT Head: Yes normal to inspection and Yes atraumatic Ears: hearing grossly normal bilaterally General nose exam: Normal external nose present Face and sinus: Yes normal facial exam Eyes General: appearance normal, both eyes and all related structures EOM: EOMs intact bilaterally Neck Neck: Yes normal visual inspection and Yes no meningeal signs Resp Effort & Inspection: normal respiratory effort and no respiratory distress Auscultation: clear to auscultation bilaterally Cardio Rate: regular rate Heart sounds: S1 normal heart sound present and S2 normal heart sound present GI Inspection: Yes normal to inspection Palpation (GI): Soft to palpation, Tenderness to palpation present (GI) in the RLQ and suprapubicly; with no rebound tenderness, no guarding and not rigid General: Yes CVA tenderness on the right Back/Spine/Pelvis Back: CVA tenderness Skin Rashes: no rashes Wounds: no wounds Neuro General: patient oriented x3, tone normal and no meningeal signs Gait exam (Neuro): Normal gait present Extrem General: Yes normal to inspection Course Course Course Narrative: -1000--no leukocytosis. H&H stable. UA and negative 1120--CT abdomen pelvis w IV con IMPRESSION: Small umbilical hernia containing fat. Question low-attenuation in the cervix. This could be further evaluated with pelvic ultrasound if clinically indicated. Fleischner guidelines were followed. > due to patient's lower abdominal/suprapubic pain will obtain pelvic ultrasound for further evaluation 1353--US pelvic and transvaginal IMPRESSION: 1.6 x 0.9 x 0.8 cm cervical polyp versus submucosal fibroid. Otherwise unremarkable exam. Results discussed with patient including worrisome signs and symptoms and strict return precautions, and when to return to the emergency department. They verbalized understanding and feel safe for discharge at this time. Medical Decision Making Medical Decision Making [facility] Narrative: 36-year-old female with a past medical history migraines, obesity, presenting to the ED complaining of acute on chronic right-sided abdominal pain times months worsening over the past few days. On exam vital signs stable, NAD, nontoxic appearing, abdomen soft with right lower quadrant/epigastric and right CVA tenderness, no rebound or guarding. Concern for appendicitis vs renal colic/pyelonephritis. Lower suspicion for diverticulitis, cholecystitis/lithiasis or pancreatitis Plan: Labs, UA, , IVF, pain control, CT AP, re-evaluate Differential Diagnosis Differential Diagnoses: The differential diagnosis associated with the presentation includes As above Lab Data [facility] Lab Attestation statement: I reviewed the patient's lab results. Result Diagrams: 10/30/22 09:12 10/30/22 09:12 Labs: Lab Results 1210/30/22 10/30/22 Range/Units 09:12 09:12 09:25 WBC 9.8 (4.8-10.8) X10*3/uL RBC 4.77 (4.20-5.50) X10*6/uL Hgb 11.6 L (12.0-16.0) g/dl Hct 37.9 (37.0-47.0) % MCV 79.5 L (80.0-98.0) fL MCH 24.3 L (27.0-33.0) pg MCHC 30.6 L (31.0-35.0) g/dl RDW 15.1 (11.0-16.0) % Plt Count 283 D (160-400) X10*3/uL MPV 10.5 (9.4-12.3) fL Immature Gran % (Auto) 0.4 (0.0-0.4) % Neut % (Auto) 69.3 (45-73) % Lymph % (Auto) 24.3 (20-40) % [place] % (Auto) 5.1 (2-11) % Eos % (Auto) 0.4 (0-4) % Baso % (Auto) 0.5 (0-2) % Lymph # (Auto) 2.4 (1.2-4.9) X10*3/uL [place] # (Auto) 0.5 (0.1-1.2) X10*3/uL Eos # (Auto) 0.0 (0.0-0.4) X10*3/uL Baso # (Auto) 0.1 (0.0-0.2) X10*3/uL Abs Immat Gran (auto) 0.04 H (0.00-0.03) X10*3/uL Absolute Neuts (auto) 6.8 (2.0-8.3) x10*3/uL Absolute Nucleated RBC 0.000 (0.0-0.012) X10*3/uL Nucleated RBC % (auto) 0.0 (0.0-0.2) /100WBC Sodium 139 (135-145) mmol/L Potassium 4.1 (3.3-5.1) mmol/L Chloride 107 (96-108) mmol/L Carbon Dioxide 26 (22-29) mmol/L Anion Gap 10 L (12-20) BUN 10 (9-16) mg/dL Creatinine 0.70 (0.5-1.4) mg/dL Estim Creat Clear Calc 101.4 Estimated GFR > 60 Random Glucose 102 (60-115) mg/dL Calcium 9.0 (8.4-10.2) mg/dL Magnesium 1.7 (1.6-2.6) mg/dL Total Bilirubin 0.3 (0.0-1.0) mg/dL AST 15 (5-31) U/L ALT 11 (0-31) U/L Alkaline Phosphatase 45 (39-117) U/L Total Protein 6.3 L (6.5-8.0) g/dL Albumin 4.0 (3.5-5.0) g/dL Lipase 22 (8-78) U/L Urine Color Yellow Urine Appearance Clear Urine pH 7.0 (5.0-9.0) Ur Specific [place] 1.025 (1.005-1.025) Urine Protein Negative (Neg-Trace) mg/dL Urine Glucose (UA) Negative (Negative) mg/dL Urine Ketones Negative (Negative) mg/dL Urine Blood Negative (Negative) Urine Nitrite Negative (Negative) Ur Leukocyte Esterase Negative (Negative) Urine Test (NEGATIVE) 10/30/22 Range/Units 09:25 WBC (4.8-10.8) X10*3/uL RBC (4.20-5.50) X10*6/uL Hgb (12.0-16.0) g/dl Hct (37.0-47.0) % MCV (80.0-98.0) fL MCH (27.0-33.0) pg MCHC (31.0-35.0) g/dl RDW (11.0-16.0) % Plt Count (160-400) X10*3/uL MPV (9.4-12.3) fL Immature Gran % (Auto) (0.0-0.4) % Neut % (Auto) (45-73) % Lymph % (Auto) (20-40) % [place] % (Auto) (2-11) % Eos % (Auto) (0-4) % Baso % (Auto) (0-2) % Lymph # (Auto) (1.2-4.9) X10*3/uL [place] # (Auto) (0.1-1.2) X10*3/uL Eos # (Auto) (0.0-0.4) X10*3/uL Baso # (Auto) (0.0-0.2) X10*3/uL Abs Immat Gran (auto) (0.00-0.03) X10*3/uL Absolute Neuts (auto) (2.0-8.3) x10*3/uL Absolute Nucleated RBC (0.0-0.012) X10*3/uL Nucleated RBC % (auto) (0.0-0.2) /100WBC Sodium (135-145) mmol/L Potassium (3.3-5.1) mmol/L Chloride (96-108) mmol/L Carbon Dioxide (22-29) mmol/L Anion Gap (12-20) BUN (9-16) mg/dL Creatinine (0.5-1.4) mg/dL Estim Creat Clear Calc Estimated GFR Random Glucose (60-115) mg/dL Calcium (8.4-10.2) mg/dL Magnesium (1.6-2.6) mg/dL Total Bilirubin (0.0-1.0) mg/dL AST (5-31) U/L ALT (0-31) U/L Alkaline Phosphatase (39-117) U/L Total Protein (6.5-8.0) g/dL Albumin (3.5-5.0) g/dL Lipase (8-78) U/L Urine Color Urine Appearance Urine pH (5.0-9.0) Ur Specific [place] (1.005-1.025) Urine Protein (Neg-Trace) mg/dL Urine Glucose (UA) (Negative) mg/dL Urine Ketones (Negative) mg/dL Urine Blood (Negative) Urine Nitrite (Negative) Ur Leukocyte Esterase (Negative) Urine Test NEGATIVE (NEGATIVE) Medications Administered Discontinued Medications Generic Name Dose Route Start Last Admin Trade Name Freq PRN Reason Stop Dose Admin Famotidine 20 mg 10/30/22 09:21 12 09:33 Famotidine/Pf 20 Mg/2 Ml Vial IVPUSH 10/30/22 09:22 20 mg ONCE ONE Administration Sodium Chloride 1,000 mls @ 999 mls/hr 10/30/22 09:30 10/30/22 11:00 Ns IV 10/30/22 10:30 Infused .Q1H1M KRYSTEN Infusion Iohexol 100 ml 10/30/22 10:40 10/30/22 10:40 Iohexol 350 Mg/Ml 100 Ml Infus..Btl IV 10/30/22 10:41 85 ml ONCE ONE Administration Ondansetron HCl 4 mg 10/30/22 09:21 10/30/22 09:33 Ondansetron Hcl 4 Mg/2 Ml Vial IVPUSH 10/30/22 09:22 4 mg ONCE ONE Administration Discharge Plan Discharge Clinical Impression: Abdominal pain, Cervical polyp Patient Disposition: Home, Self-Care Instructions: Abdominal Pain (ED) Additional Instructions: Your blood work and urine were reassuring. Your ultrasound shows a cervical polyp. Please have close follow-up with your OBGYN and gastroenterology. Practice of bland diet. If symptoms persist or worsen, you have fever, unremitting pain return to the emergency department Prescriptions: No Action metronidazole 500 mg tablet 500 mg PO BID 7 Days Qty: 14 0RF Rx Instructions: Take with food, Avoid alcohol and vinegar products cholecalciferol (vitamin D3) 50 mcg (2,000 unit) capsule 50 mcg PO DAILY Qty: 90 3RF levonorgestrel [Plan B One-Step] 1.5 mg tablet 1.5 mg PO ONCE Qty: 1 2RF Citrucel 500 mg tablet 500 mg PO DAILY Qty: 90 2RF Rx Instructions: take it with full glass of water omeprazole 20 mg capsule,delayed release(DR/EC) 20 mg PO DAILY Qty: 90 2RF sennosides [Natural Senna Laxative] 8.6 mg tablet 8.6 mg PO BEDTIME Qty: 90 3RF Referrals: [facility] [place] [facility] [place] Group] [facility] [place] [facility] [place]] Devonte Crawford MD [Primary Care Provider] - Stand Alone Forms: Work/School Release Interventions: ED Discharge Assessment Last Done: 10/30/22 14:07 Discharge Date/Time: 10/30/22 14:20
[2022-10-30 09:22] LABS: MANUAL DIFF FLAG NO
[2022-10-30 09:24] LABS: Basophils Absolute Auto 0.1 X10*3/uL (0.0-0.2); Basophils Percent Auto 0.5 % (0-2); Eosinophils Percent Auto 0.4 % (0-4); Hematocrit 37.9 % (37.0-47.0); Hemoglobin 11.6 g/dl (12.0-16.0); Imm Gran Abs Auto 0.04 X10*3/uL (0.00-0.03); Imm Gran Pct Auto 0.4 % (0.0-0.4); Lymphocytes Absolute Auto 2.4 X10*3/uL (1.2-4.9); Lymphocytes Percent Auto 24.3 % (20-40); Mean Corpuscular HGB Conc 30.6 g/dl (31.0-35.0); Mean Corpuscular Hemoglobin 24.3 pg (27.0-33.0); Mean Corpuscular Volume 79.5 fL (80.0-98.0); Mean Platelet Volume 10.5 fL (9.4-12.3); Monocytes Absolute Auto 0.5 X10*3/uL (0.1-1.2); Monocytes Percent Auto 5.1 % (2-11); Neutrophils Absolute Auto 6.8 x10*3/uL (2.0-8.3); Neutrophils Percent Auto 69.3 % (45-73); Platelet Count 283 X10*3/uL (160-400); Red Blood Count 4.77 X10*6/uL (4.20-5.50); Red Cell Distribution Width 15.1 % (11.0-16.0); White Blood Count 9.8 X10*3/uL (4.8-10.8)
[2022-10-30 09:33] LABS: Appearance Urine Clear; Color Urine Yellow; Glucose Urine UA Negative (Negative); Leukocyte Esterase Urine Negative (Negative); Nitrite Urine Negative (Negative); Specific Gravity - Urine 1.025 (1.005-1.025); Urine Blood Negative (Negative); Urine Ketones Negative (Negative); Urine Protein Negative (Neg-Trace)
[2022-10-30] MEDS: ondansetron HCL 4 MG/2 ML VIAL IVPUSH (09:33)
[2022-10-30] MEDS: 0.9 % Sodium Chloride 1,000 ML 999 ML IV (09:33)
[2022-10-30] MEDS: Famotidine/PF 20 MG/2 ML VIAL IVPUSH (09:33)
[2022-10-30 09:37] LABS: UPreg QC Valid YES; Urine Pregnancy NEGATIVE (NEGATIVE)
[2022-10-30 09:42] LABS: Alanine Aminotransferase 11 U/L (0-31); Alkaline Phosphatase 45 U/L (39-117); Anion Gap 10 (12-20); Aspartate Amino Transferase 15 U/L (5-31); Bilirubin Total 0.3 mg/dL (0.0-1.0); Blood Urea Nitrogen 10 mg/dL (9-16); Carbon Dioxide 26 mmol/L (22-29); Chloride 107 mmol/L (96-108); Creatinine Clr Calc Pharmacy 101.4; Estimated Glomerular Filt Rate > 60; Glucose Random 102 mg/dL (60-115); Potassium 4.1 mmol/L (3.3-5.1); Sodium 139 mmol/L (135-145); Total Protein 6.3 g/dL (6.5-8.0)
[2022-10-30 09:56] LABS: Lipase 22 U/L (8-78); Magnesium 1.7 mg/dL (1.6-2.6)
[2022-10-30] MEDS: iohexoL 350 MG/ML 100 ML INFUS..BTL IV (10:40)
[2022-10-30 11:42] VITALS: BP 134/81; PULSE 61; RESP 15; TEMP 37; O2SAT 100
== END 2022-10-30 14:20 | disposition home or self-care (01) ==
PROVIDERS: Physician Assistant; Emergency Provider Student in an Organized Health Care Education/Training Program; PCP Internal Medicine
DX: N84.1 Polyp of cervix uteri (principal); R10.2 Pelvic and perineal pain; Z79.899 Other long term (current) drug therapy
CPT/HCPCS: 36415; 74177; 76830; 76856; 80053; 81003; 81025; 83690; 83735; 85025; 96361; 96374; 96375; 99283; 99284; J2405; Q9967

== ENCOUNTER → 2022-11-12 12:25 | Outpatient (BNVA) | payer OTHER, SELFPAY | PROVIDERS: PCP Internal Medicine; Visit Provider Nurse Practitioner Family | DX: R10.10 Upper abdominal pain, unspecified (principal); K59.04 Chronic idiopathic constipation; K21.9 Gastro-esophageal reflux disease without esophagitis | CPT/HCPCS: 99212 ==

== ENCOUNTER 2022-12-10 12:28 | Outpatient (REF) | payer OTHER, SELFPAY ==
[2022-12-10 14:43] LABS: HCG Quantitative < 2 mIU/mL; TSH reflex Free T4 0.93 uIU/mL (0.32-4.0)
[2022-12-10 19:48] LABS: CT PCR NOT DETECTED (Not Detect.); NG PCR NOT DETECTED (Not Detect.)
== END 2022-12-10 12:29 | disposition home or self-care (01) ==
LOC: HO.LNP 12:28
PROVIDERS: PCP Internal Medicine; Visit Provider Obstetrics & Gynecology
DX: N93.9 Abnormal uterine and vaginal bleeding, unspecified (principal)
CPT/HCPCS: 0353U; 84443; 84702; 99212

== ENCOUNTER 2022-12-27 09:15 | Day surgery (SDC) | payer OTHER, SELFPAY ==
[2022-12-24 15:38] VITALS: BMI 31.1
[2022-12-27 09:50] VITALS: BMI 27.4
[2022-12-27 09:53] LABS: UPreg QC Valid YES; Urine Pregnancy NEGATIVE (NEGATIVE)
[2022-12-27 10:04] VITALS: BP 132/67; PULSE 67; RESP 16; TEMP 36.3; O2SAT 99
--- NOTE | 2022-12-27 10:07 | HO.ANESPROP2 ---
HPI - Anesthesia Eval Consult details Narrative: 37 yo female patient for Hysteroscopy, D&C, poss polypectomy, poss myomectomy PMFSH Active Problems Active Problems: All Active Problems (Updated 12/27/22 @ 10:09 by Arlene Logan MD) Anxiety (Acute)- not taking any medications. Woke up suddenly last night with ?attack of anxiety catching her breath and some chest heaviness. Since resolved. EKG shows no acute changes.A little tearful this am Vaginal bleeding (Acute) Anemia (Acute) Family planning (Acute) Abdominal pain (Acute) Fibromyalgia (Acute) Keratoderma (Acute) Acute vaginitis (Acute) Hx of abnormal cervical Pap smear (Acute) Well woman exam with routine gynecological exam (Acute) Screen for sexually transmitted diseases (Acute) control counseling (Acute) Abnormal uterine bleeding (AUB) (Acute) Left-sided low back pain with sciatica (Acute) Dysuria (Acute) History of ectopic (Acute) Obesity (BMI 30-39.9) (Acute) Possible exposure to STD (Acute) Fatigue (Acute) RUQ abdominal pain (Acute) Pelvic pain (Acute) Snores but never tested for APPLE Past Medical History Medical History Carpal tunnel syndrome Dysuria Ectopic Fatigue History of ectopic History of fibromyalgia Hx of Lyme disease Left-sided low back pain with sciatica Migraine with aura Obesity (BMI 30-39.9) Pelvic pain Possible exposure to STD RUQ abdominal pain Family History Family History Father CVD (cardiovascular disease) Diabetes mellitus Mother Hypertension History of fibromyalgia Paternal Aunt Ovarian cancer Paternal Grandmother History of breast cancer Family history of problems with anesthesia: No Surgical History Surgical History H/O dilation and curettage H/O LEEP History of Problems with Anesthesia: No (Never had GA) Social History Social History (Updated 12/27/22 @ 10:22 by Arlene Logan MD) Housing: Apartment Alcohol intake: never Patient Tobacco Use Status: Former Tobacco user Second Hand Smoke Exposure: No Use of substances other than those prescribed or required for medical reasons: No Substance Use Type: Marijuana Last Used Substance Other:: Months ago Trauma History: with ex partner and father of her children. The children are in DCF custody currently awaiting trial for unification. Are you DNR?: No Advance Directives: No Advance Directives Information Provided: Yes Recently lost weight without trying: No Nutrition Risks: No Nutritional Risk service: No Current occupational status: unemployed Meds Allergies Allergy/AdvReac Type Severity Reaction Status Date / Time No Known Allergies Allergy Mild NOT Verified 12/10/22 12:45 [No Known Allergies*] APPLICABLE Exam Exam Date and Time: December 27, 2022 1007 Height,Weight and Vital Signs: Height 5 ft 2 in Weight 68.039 kg Last Vital Signs Temp 97.4 F 12/27/22 10:04 Pulse 67 12/27/22 10:04 Resp 16 12/27/22 10:04 BP 132/67 12/27/22 10:04 Pulse Ox 99 12/27/22 10:04 O2 Del Method 12/27/22 10:04 Pertinent Lab Results Pertinent Lab Results: Laboratory Tests 12/27/22 09:41 Urine Test NEGATIVE Airway Mallampati Class: II TM Dist: >3cm Neck ROM: Full Loose/Missing/Broken Teeth: Yes (Broken top and bottom left back, missing top right. Denies loose teeth) Heart: RRR Lungs: CTAB Assessment and Plan Assessment Anesthesia Assessment: Anesthesia Plan Discussed and Chart Reviewed Final Anesthetic Review Family History of Problems with Anesthesia: No History of Problems with Anesthesia: No (Never had GA) NPO: Yes ASA Class: II Final Preanesthetic Review: No Changes in Pt Med Stat, Meds/Allgs Chart Reviewed, Consent Obtained/Reviewed and Anes Risks/Benef Reviewed Patient Risk: Low Procedure Risk: Low Assessment/Block/Sedation in SS: Assess/Block/Sedation-SS Anesthetic Plan Anesthetic Plan: GA Disposition: Standard PACU
[2022-12-27] MEDS: Lactated Ringers 1,000 ML 100 ML IVCONT (10:09)
--- NOTE | 2022-12-27 10:52 | MHC.SHP ---
Pre-Procedural Eval Section A Date of Service: 12/27/22 The patient is an INPATIENT: No Changes since office visit: No Cold of Flu in the past 2 weeks, No New Medical Problems, No Changes in Medication and No Patient answered all questions The History & Physical has been completed within 30 days and I have reviewed it.: Yes Section B Chief Complaint: Abnormal uterine and vaginal bleeding, Allergies: Allergies Allergy/AdvReac Type Severity Reaction Status Date / Time No Known Allergies Allergy Mild NOT Verified 12/10/22 12:45 [No Known Allergies*] APPLICABLE Plan Diagnosis/Plan: Unchanged I have reviewed the history and physical and performed a pertinent physical examination on my patient. No changes have occurred unless specified. Time Spent With Patient Time: Total time managing care of this patient today ____ minutes.
--- NOTE | 2022-12-27 11:42 | P.BOP_ITS ---
Brief Operative Note Date of Service: 12/27/22 Pre-op diagnosis: Abnormal uterine bleeding Post-op diagnosis: same (Normal endometrial cavity) Procedure: Hysteroscopy D&C, Surgeon: Michel Duncan MD Anesthesia: GLMA Was an Transport Engineer used for this Procedure?: No Estimated blood loss (mL): 0 Pathology: other (Endometrial Scrapping. ) Condition: stable Disposition: PACU
--- NOTE | 2022-12-27 11:42 | W.PM.OPN ---
Operative Note Operative Note Date of Service: 12/27/22 Narrative: Preop Diagnosis: Abnormal uterine bleeding Operation: Diagnostic Hysteroscopy, Dilataion & Curettage Post Op Diagnosis: Normal endometrial and endocervical cavity, no evidence of pathology QBL: Minimal Anesthesia: GLMA Surgeon: Michel Duncan MD Investment Officer: None Complication: None Pathology: Endometrial Scrapings Procedure: The patient was put in the dorsal lithotomy position, scrubbed, and draped in the usual manner. A sterile speculum was inserted in the patient's vagina. The anterior lip of the cervix was grasped with a single tooth tenaculum. The cervix was dilated up to 5 mm, then the scope was inserted in the patient's uterus. Inspection revealed normal endocervical & endometrial cavity with no evidence of pathology. The scope was taken out of the uterine cavity , then sharp curetting was carried on with no complications. At the end of the procedure, all instruments were taken out of the patient uterine and vaginal cavity. The single tooth tenaculum was removed and homeostasis was assured using pressure. The patient tolerated the procedure well and was transferred to the PACU in a stable condition.
[2022-12-27 11:52] VITALS: BP 135/78; PULSE 71; RESP 18; TEMP 36.8; O2SAT 100
[2022-12-27 11:57] VITALS: BP 132/80; PULSE 61; RESP 17; O2SAT 100
[2022-12-27 12:02] VITALS: BP 139/83; PULSE 63; RESP 18; O2SAT 100
[2022-12-27 12:07] VITALS: BP 142/85; PULSE 63; RESP 18; O2SAT 100
[2022-12-27 12:23] VITALS: BP 130/80; PULSE 57; RESP 18; TEMP 36.8; O2SAT 100
== END 2022-12-27 12:50 | disposition home or self-care (01) ==
PROVIDERS: PCP Internal Medicine; Visit Provider Obstetrics & Gynecology
PROC: 0UDB8ZZ Extraction of Endometrium, Via Natural or Artificial Opening Endoscopic (ICD-10-PCS; CPT 58558; principal; 2022-12-27 11:30)
DX: N93.9 Abnormal uterine and vaginal bleeding, unspecified (principal); N92.0 Excessive and frequent menstruation with regular cycle; R53.83 Other fatigue; G43.109 Migraine with aura, not intractable, without status migrainosus; R30.0 Dysuria; Z79.899 Other long term (current) drug therapy; Z87.891 Personal history of nicotine dependence; F12.90 Cannabis use, unspecified, uncomplicated
CPT/HCPCS: 58558; 81025; 88305; J0131; J1100; J2250; J2405; J3010

== ENCOUNTER → 2023-01-28 10:18 | Outpatient (BNVA) | payer OTHER, SELFPAY | PROVIDERS: PCP Internal Medicine; Visit Provider Obstetrics & Gynecology | DX: N93.9 Abnormal uterine and vaginal bleeding, unspecified (principal) | CPT/HCPCS: 99212 ==

== ENCOUNTER 2023-07-16 14:18 | Outpatient (AMB) | payer OTHER, SELFPAY ==
[2023-07-16 14:26] VITALS: BP 116/70; BMI 27.0
--- NOTE | 2023-07-16 14:26 | MHC.OFFVIS ---
Intake Vital Signs 07/16/23 14:26 Height 5 ft 6 in Weight 167 lb 8.821 oz BMI 27.0 BP 116/70 Intake Visit Reasons: vaginal odor Director Regulatory Compliance Required: No Information Interpreted: non-clinical & clinical Authorization Representative: Authorization Representative Present (Diamond MCPHERSON) Accompanied by: Self / Same As Patient Allergies No Known Allergies [No Known Allergies*] Allergy (Mild, Verified 07/16/23 14:29) NOT APPLICABLE Is last menstrual period known: Yes Last menstrual period: 07/09/23 HPI HPI Comments History of Present Illness Details Presenting complaining of vaginal discharge associated with foul odor, in addition the patient is complaining of pelvic pain started 1-2 week ago. It's intermittent in nature lasting few seconds and occurs 3x/day. it is not associated with constipation, or dysuria, frequency, no incontinence, no n/v, no feverishness P PFSH Medical History Left-sided low back pain with sciatica Dysuria Migraine with aura History of ectopic Obesity (BMI 30-39.9) Possible exposure to STD Fatigue RUQ abdominal pain Pelvic pain Ectopic Carpal tunnel syndrome History of fibromyalgia Hx of Lyme disease Surgical History H/O dilation and curettage H/O LEEP Family History Father CVD (cardiovascular disease) Diabetes mellitus Mother Hypertension History of fibromyalgia Paternal Aunt Ovarian cancer Paternal Grandmother History of breast cancer Social History Housing: Apartment Alcohol intake: never Patient Tobacco Use Status: Never used Tobacco Second Hand Smoke Exposure: No Substance Use Type: Marijuana Trauma History: with ex partner and father of her children. The children are in DCF custody currently awaiting trial for unification. service: No Current occupational status: unemployed Female Reproductive History Menstrual Age of Menarche: 14 Date of last menstrual period: 07/09/23 Review of Systems Const All systems reviewed & are unremarkable except as noted in HPI and below Physical Exam Vital Signs: Last Vital Signs BP 116/70 07/16/23 14:26 BMI result Body Mass Index 27.0 General: Yes no CVA tenderness External Female Exam: normal external appearance and normal appearance of the urethra Speculum Exam - Vagina: normal appearance of the vagina, normal palpation, no lesions and no masses Speculum Exam - Cervix: normal appearance of the cervix, normal palpation, no lesions, no masses and nontender Bimanual exam- vagina & uterus: normal bimanual exam, normal palpation, uterine size normal, normal palpation, uterine shape normal, No Cervical tenderness present and non-tender Bimanual Exam- Adnexa, other: normal adnexae Back/Spine/Pelvis Back: no CVA tenderness Assessment & Plan Assessment & Plan (1) Pelvic pain: Code(s): R10.2 - Pelvic and perineal pain Plan: Urine dip and test done in the office were both negative. GC and chlamydia taken and pelvic ultrasound ordered. Discussed with the patient the differential diagnosis of pelvic pain including but not limited to adnexal, uterine masses, pelvic infections (PID), GI the (Irritable bowel syndrome, diverticulitis, others), musculoskeletal, myofascial pain abdominal wall , adhesions, endometriosis, psychological and others causes. Will check results and treat accordingly. All questions answered, the patient verbalized understanding. Instructed the patient to schedule follow-up appointment in 2 weeks (2) Bacterial vaginosis: Code(s): N76.0 - Acute vaginitis; B96.89 - Other specified bacterial agents as the cause of diseases classified elsewhere Plan: GC and chlamydia cultures with BV panel taken. Per CDC recommendation, will screen for STI, HepBs Ag, HIV, RPR, Hep C Ab ordered. Will treat with Flagyl 500 mg p.o. b.i.d. x 7 days, Instructions given to the patient to refrain from sexual activity or to use condoms consistently and correctly during the BV treatment regimen, not to douch, it might increase the risk for relapse, and to call if symptoms persist or recur. Orders: Orders CT NG by PCR Today B96.89 - Other specified bacterial agents as the cause of diseases classified elsewhere, N76.0 - Acute vaginitis US pelvic and transvaginal Today R10.2 - Pelvic and perineal pain HIV Ab/Ag Today Z20.2 - Contact with and (suspected) exposure to infections with a predominantly sexual mode of transmission Bacterial Vaginosis Panel Today B96.89 - Other specified bacterial agents as the cause of diseases classified elsewhere, N76.0 - Acute vaginitis Hepatitis C Antibody Today Z20.2 - Contact with and (suspected) exposure to infections with a predominantly sexual mode of transmission Hepatitis B Surface Antigen Today Z20.2 - Contact with and (suspected) exposure to infections with a predominantly sexual mode of transmission Syphilis Screen Today Z20.2 - Contact with and (suspected) exposure to infections with a predominantly sexual mode of transmission Medications: New metronidazole 500 mg PO BID 7 days 14 tabs 0RF Coding Level of Care Code Est Pt Level 3 (26661) Diagnoses Pelvic pain R10.2 Bacterial vaginosis N76.0; B96.89
== END 2023-07-16 14:54 | disposition home or self-care (01) ==
PROVIDERS: PCP Internal Medicine; Visit Provider Obstetrics & Gynecology
DX: R10.2 Pelvic and perineal pain (principal); N76.0 Acute vaginitis; B96.89 Other specified bacterial agents as the cause of diseases classified elsewhere; Z32.02 Encounter for pregnancy test, result negative
CPT/HCPCS: 99213

== ENCOUNTER 2023-07-16 14:18 | Outpatient (REF) | payer OTHER, SELFPAY | END 2023-07-16 14:19 | disposition home or self-care (01) | LOC: HO.LNP 14:18 | PROVIDERS: PCP Internal Medicine; Visit Provider Obstetrics & Gynecology | DX: R10.2 Pelvic and perineal pain (principal); N76.0 Acute vaginitis; B96.89 Other specified bacterial agents as the cause of diseases classified elsewhere | CPT/HCPCS: 81003; 81025; 99212 ==

== ENCOUNTER 2023-07-16 14:56 | Outpatient (REF) | payer OTHER, SELFPAY ==
[2023-07-16 18:56] LABS: CT PCR NOT DETECTED (Not Detect.); NG PCR NOT DETECTED (Not Detect.)
[2023-07-17 05:08] LABS: Syphilis Screen Nonreactive (Nonreactive)
[2023-07-17 05:21] LABS: HBsAGNum1 0.42 S/CO (0.00-0.99); HIV AB/AG Nonreactive (Nonreactive); HIV Num 1 0.05 S/CO (0.00-0.99); Hepatitis B Surface Antigen Negative (Negative); ~HepC Num1 0.08 S/CO (0.00-0.79); ~Hepatitis C Antibody Nonreactive (Nonreactive)
[2023-07-17 11:39] LABS: BV Int Neg Control Negative (Negative); BV Int Pos Control Positive (Positive)
== END 2023-07-16 14:57 | disposition home or self-care (01) ==
LOC: HO.LAB 14:56
PROVIDERS: PCP Internal Medicine; Visit Provider Obstetrics & Gynecology
DX: Z11.4 Encounter for screening for human immunodeficiency virus [HIV] (principal); Z20.2 Contact with and (suspected) exposure to infections with a predominantly sexual mode of transmission; N76.0 Acute vaginitis; B96.89 Other specified bacterial agents as the cause of diseases classified elsewhere
CPT/HCPCS: 0353U; 86780; 86803; 87340; 87389; 87480; 87510; 87660

== ENCOUNTER 2023-11-27 15:04 | Emergency (ER) | payer OTHER, SELFPAY ==
--- NOTE | ~2023-11-27 | XR_ITS ---
EXAMINATION: XR CHEST CLINICAL INFORMATION: Chest pain. COMPARISON: 09/25/2015 TECHNIQUE: 2 views of the chest were obtained. FINDINGS: The lungs are well expanded. No focal consolidation. No pleural effusion. Cardiac silhouette is within normal limits. XR/XR chest 2V IMPRESSION: No acute abnormality.
--- NOTE | ~2023-11-27 | US_ITS ---
EXAMINATION: US ABDOMEN LIMITED CLINICAL INFORMATION: Right upper quadrant pain. COMPARISON: None available. TECHNIQUE: Real-time imaging of the right upper quadrant abdominal viscera. FINDINGS: PANCREAS: Normal. LIVER: Normal. The liver is normal in size. The liver contour is normal. Parenchymal echogenicity is normal. No focal hepatic lesion. There is no intrahepatic biliary duct dilatation seen. GALLBLADDER: Normal. The gallbladder is physiologically distended without evidence of stones, sludge, polyps, wall thickening or pericholecystic fluid. COMMON BILE DUCT: Normal in caliber measuring 0.26 cm in diameter. RIGHT KIDNEY: Normal. No hydronephrosis. No renal calculi or focal parenchymal lesions. The kidney measures 10.5 cm in maximum dimension. FREE FLUID: None. US/US abdomen limited IMPRESSION: Unremarkable limited abdomen ultrasound.
[2023-11-27 15:12] VITALS: BP 177/63; PULSE 82; RESP 20; TEMP 37.1; O2SAT 100; BMI 35.5
--- NOTE | 2023-11-27 15:12 | ED.GENADULT ---
HPI - General Adult General Chief complaint: Abdominal Pain Stated complaint: right side abd pain/chest pain Time Seen by Provider: 11/27/23 21:44 Source: patient Mode of arrival: ambulatory Limitations: no limitations History of Present Illness HPI narrative: Patient complaining of pain right upper quadrant for last few days got worse for last 3days especially after eating fried food feels bloated no nausea no vomiting no diarrhea no constipation no history of kidney stone no history of gallstone no history of alcohol use Related Data Previous Rx's Medication Instructions Recorded methylcellulose (laxative) 500 mg 500 mg PO DAILY #90 tabs 11/12/22 tablet (Citrucel) omeprazole 20 mg capsule,delayed 20 mg PO DAILY #90 caps 11/12/22 release sennosides 8.6 mg tablet (Natural 8.6 mg PO BEDTIME constipation #90 11/12/22 Senna Laxative) tabs cyclobenzaprine 5 mg tablet 5 mg PO BEDTIME PRN muscle spasm 11/25/22 #14 tabs lidocaine 5 % topical patch 1 patch topical DAILY #15 ea 11/25/22 (Lidoderm) metronidazole 500 mg tablet 500 mg PO BID 7 days #14 tabs 07/16/23 Allergies Allergy/AdvReac Type Severity Reaction Status Date / Time No Known Allergies Allergy Mild NOT Verified 11/27/23 15:15 [No Known Allergies*] APPLICABLE Review of Systems Review of Systems: Yes all other systems are reviewed and are negative PMFSH Past Medical History Medical History Left-sided low back pain with sciatica Dysuria Migraine with aura History of ectopic Obesity (BMI 30-39.9) Possible exposure to STD Fatigue RUQ abdominal pain Pelvic pain Ectopic Carpal tunnel syndrome History of fibromyalgia Hx of Lyme disease Surgical History H/O dilation and curettage H/O LEEP Family History Family History Father CVD (cardiovascular disease) Diabetes mellitus Mother Hypertension History of fibromyalgia Paternal Aunt Ovarian cancer Paternal Grandmother History of breast cancer Social History Social History Housing: Apartment Alcohol intake: never Patient Tobacco Use Status: Never used Tobacco Smoked in Last 30 Days: No Second Hand Smoke Exposure: No Substance Use Type: Marijuana Trauma History: with ex partner and father of her children. The children are in DCF custody currently awaiting trial for unification. Advance Directives: No Advance Directives Information Provided: No Patient : No service: No Current occupational status: unemployed Physical Exam ED Vital Signs: Vital Signs - 24 hr 11/27/23 15:12 11/27/23 23:48 Temperature 98.8 F 98.2 F Pulse Rate 82 68 Respiratory Rate 20 16 Blood Pressure 177/63 H 126/74 Pulse Oximetry 100 99 Oxygen Delivery Method Room Air Room Air BMI result Body Mass Index 35.5 Appearance: Alert. Oriented X3. No acute distress. Eyes: No pallor or icterus ENT: Pharynx normal. Oral Mucosa moist Neck: Normal inspection. Neck supple. CVS: Normal heart rate and rhythm. Pulses normal. Respiratory: No respiratory distress. Equal air entry bilateral, Abdomen: Soft tenderness right upper quadrant no rebound tenderness got Bowel sounds are present, no mass palpable, no CVA tenderness Skin: Skin warm and dry. Normal skin color. Normal skin turgor. Extremities: No lower extremity edema. No calf tenderness Neuro: Oriented X 3. Course Course Course Narrative: This is an RME: Additional HPI, ROS, PE not included below will be deferred to primary provider. This is a [id number] presenting to the emergency department with a complaint of chest pain, cough, and nasal congestion. Reporting no N/V/D. Had some abnormal vaginal spotting, she is sexually active. Plan: Labs, COVID, flu, hCG Medications Administered Discontinued Medications Generic Name Dose Route Start Last Admin Trade Name Freq PRN Reason Stop Dose Admin Ketorolac Tromethamine 60 mg 11/27/23 22:01 11/27/23 22:09 Ketorolac Tromethamine 60 Mg/2 Ml Vial IM 11/27/23 22:02 60 mg ONCE ONE Administration Medical Decision Making Medical Decision Making [facility] Narrative: Patient had upper quadrant tenderness with no history of gallstones previous CT scan in 2021, tender to touch, labs are stable will do ultrasound to rule out biliary colic Differential Diagnosis Differential Diagnoses: The differential diagnosis associated with the presentation includes Gallstones/biliary colic/pancreatitis/ Lab Data [facility] Lab Attestation statement: I reviewed the patient's lab results. 11/27/23 15:27 11/27/23 15:27 Labs: Lab Results 11/27/23 11/27/23 11/27/23 Range/Units 15: 15:27 16:20 WBC 9.6 (4.8-10.8) X10*3/uL RBC 4.64 (4.20-5.50) X10*6/uL Hgb 11.8 L (12.0-16.0) g/dl Hct 36.8 L (37.0-47.0) % MCV 79.3 L (80.0-98.0) fL MCH 25.4 L (27.0-33.0) pg MCHC 32.1 (31.0-35.0) g/dl RDW 13.8 (11.0-16.0) % Plt Count 307 (160-400) X10*3/uL MPV 10.5 (9.4-12.3) fL Immature Gran % (Auto) 0.2 (0.0-0.4) % Neut % (Auto) 65.3 (45-73) % Lymph % (Auto) 25.1 (20-40) % Levy % (Auto) 8.1 (2-11) % Eos % (Auto) 0.8 (0-4) % Baso % (Auto) 0.5 (0-2) % Lymph # (Auto) 2.4 (1.2-4.9) X10*3/uL Levy # (Auto) 0.8 (0.1-1.2) X10*3/uL Eos # (Auto) 0.1 (0.0-0.4) X10*3/uL Baso # (Auto) 0.1 (0.0-0.2) X10*3/uL Abs Immat Gran (auto) 0.02 (0.00-0.03) X10*3/uL Absolute Neuts (auto) 6.2 (2.0-8.3) x10*3/uL Absolute Nucleated RBC 0.000 (0.0-0.012) X10*3/uL Nucleated RBC % (auto) 0.0 (0.0-0.2) /100WBC Sodium 139 (135-145) mmol/L Potassium 3.6 (3.3-5.1) mmol/L Chloride 108 (96-108) mmol/L Carbon Dioxide 23 (22-29) mmol/L Anion Gap 12 (12-20) BUN 10 (9-16) mg/dL Creatinine 0.75 (0.5-1.4) mg/dL Estim Creat Clear Calc 123.5 Estimated GFR > 60 Random Glucose 116 H (60-115) mg/dL Calcium 9.2 (8.4-10.2) mg/dL Total Bilirubin 0.2 (0.0-1.0) mg/dL Direct Bilirubin < 0.2 (0.0-0.5) mg/dL AST 17 (5-31) U/L ALT 11 (0-31) U/L Alkaline Phosphatase 47 (39-117) U/L Troponin I High Sens < 2.7 (<3.5-17.0) ng/L Total Protein 6.9 (6.5-8.0) g/dL Albumin 4.1 (3.5-5.0) g/dL Beta HCG, Quant < 2 mIU/mL COVID-19 (PATRICK) Negative (Negative) COVID-19 Clin Com See Note Influenza Type A (RENETTA) Negative (Negative) Influenza Type B (RENETTA) Negative (Negative) Influenza A & B Note See Note Independent Interpretation I performed an independent interpretation of an: Ultrasound Radiology Impression Discussion of test interpretation with radiology: I have reviewed the radiologist's reading. Discharge Plan Discharge Clinical Impression: Abdominal pain Patient Disposition: Home, Self-Care Instructions: Abdominal Pain (ED) Additional Instructions: Cause of abdominal pain is not clear Drink plenty of fluids avoid fried food Continue take your omeprazole Prescriptions: No Action cyclobenzaprine 5 mg tablet 5 mg PO BEDTIME PRN (Reason: muscle spasm) Qty: 14 0RF lidocaine [Lidoderm] 5 % adhesive patch,medicated 1 patch topical DAILY Qty: 15 0RF Rx Instructions: leave on most painful area for up to 12 hrs Citrucel 500 mg tablet 500 mg PO DAILY Qty: 90 2RF Rx Instructions: take it with full glass of water sennosides [Natural Senna Laxative] 8.6 mg tablet 8.6 mg PO BEDTIME Qty: 90 3RF omeprazole 20 mg capsule,delayed release(DR/EC) 20 mg PO DAILY Qty: 90 2RF metronidazole 500 mg tablet 500 mg PO BID 7 Days Qty: 14 0RF Interventions: ED Discharge Assessment Last Done: 11/27/23 23:50 Discharge Date/Time: 11/27/23 23:51
--- NOTE | 2023-11-27 15:17 | ECG_ITS ---
Test Reason : ABD PAIN Blood Pressure : / mmHG Vent. Rate : 064 BPM Atrial Rate : 064 BPM P-R Int : 154 ms QRS Dur : 082 ms QT Int : 406 ms P-R-T Axes : 038 040 023 degrees QTc Int : 418 ms Normal sinus rhythm Normal ECG When compared with ECG of 16-OCT-2020 16:11, No significant change was found Referred By: Allie Pretty Electronically Signed By:Eyal Esposito
[2023-11-27 15:33] LABS: MANUAL DIFF FLAG NO
[2023-11-27 15:40] LABS: Basophils Absolute Auto 0.1 X10*3/uL (0.0-0.2); Basophils Percent Auto 0.5 % (0-2); Eosinophils Absolute Auto 0.1 X10*3/uL (0.0-0.4); Eosinophils Percent Auto 0.8 % (0-4); Hematocrit 36.8 % (37.0-47.0); Hemoglobin 11.8 g/dl (12.0-16.0); Imm Gran Abs Auto 0.02 X10*3/uL (0.00-0.03); Imm Gran Pct Auto 0.2 % (0.0-0.4); Lymphocytes Absolute Auto 2.4 X10*3/uL (1.2-4.9); Lymphocytes Percent Auto 25.1 % (20-40); Mean Corpuscular HGB Conc 32.1 g/dl (31.0-35.0); Mean Corpuscular Hemoglobin 25.4 pg (27.0-33.0); Mean Corpuscular Volume 79.3 fL (80.0-98.0); Mean Platelet Volume 10.5 fL (9.4-12.3); Monocytes Absolute Auto 0.8 X10*3/uL (0.1-1.2); Monocytes Percent Auto 8.1 % (2-11); Neutrophils Absolute Auto 6.2 x10*3/uL (2.0-8.3); Neutrophils Percent Auto 65.3 % (45-73); Platelet Count 307 X10*3/uL (160-400); Red Blood Count 4.64 X10*6/uL (4.20-5.50); Red Cell Distribution Width 13.8 % (11.0-16.0); White Blood Count 9.6 X10*3/uL (4.8-10.8)
[2023-11-27 15:59] LABS: COVID-19 Test Negative (Negative); IDNOW Serial# 08D9AD1C
[2023-11-27 16:09] LABS: Alanine Aminotransferase 11 U/L (0-31); Albumin Level 4.1 g/dL (3.5-5.0); Alkaline Phosphatase 47 U/L (39-117); Anion Gap 12 (12-20); Aspartate Amino Transferase 17 U/L (5-31); Bilirubin Direct < 0.2 mg/dL (0.0-0.5); Bilirubin Total 0.2 mg/dL (0.0-1.0); Blood Urea Nitrogen 10 mg/dL (9-16); Calcium 9.2 mg/dL (8.4-10.2); Carbon Dioxide 23 mmol/L (22-29); Chloride 108 mmol/L (96-108); Creatinine Clr Calc Pharmacy 123.5; Estimated Glomerular Filt Rate > 60; Glucose Random 116 mg/dL (60-115); HCG Quantitative < 2 mIU/mL; Potassium 3.6 mmol/L (3.3-5.1); Sodium 139 mmol/L (135-145); Total Protein 6.9 g/dL (6.5-8.0); Troponin-I High Sensitivity < 2.7 ng/L (<3.5-17.0)
[2023-11-27 16:42] LABS: IDNOW Serial# 9DB6401D
[2023-11-27 16:43] LABS: Influenza A Negative (Negative); Influenza B2 Negative (Negative)
[2023-11-27] MEDS: Ketorolac Tromethamine 60 MG/2 ML VIAL IM (22:09)
[2023-11-27 23:48] VITALS: BP 126/74; PULSE 68; RESP 16; TEMP 36.8; O2SAT 99
== END 2023-11-27 23:51 | disposition home or self-care (01) ==
PROVIDERS: Physician Assistant Medical; Emergency Provider Internal Medicine; PCP Internal Medicine
DX: R14.0 Abdominal distension (gaseous) (principal); R10.11 Right upper quadrant pain; R11.2 Nausea with vomiting, unspecified; R07.89 Other chest pain; Z11.52 Encounter for screening for COVID-19; Z79.899 Other long term (current) drug therapy
CPT/HCPCS: 71046; 76705; 80048; 80076; 84484; 84702; 85025; 87502; 87635; 93005; 96372; 99284; 99285; J1885

== ENCOUNTER → 2023-11-27 15:17 | Outpatient (BNV) | payer OTHER, SELFPAY | PROVIDERS: Emergency Provider Internal Medicine; PCP Internal Medicine; Visit Provider Internal Medicine Cardiovascular Disease | DX: R10.9 Unspecified abdominal pain (principal) | CPT/HCPCS: 93010 ==

== ENCOUNTER 2023-12-26 11:28 | Outpatient (REF) | payer OTHER, SELFPAY ==
--- NOTE | ~2023-12-26 | US_ITS ---
EXAMINATION: US PELVIS CLINICAL INFORMATION: Last menstrual period December 17, 2023. Pelvic pain. COMPARISON: Ultrasound abdomen of 11/27/2023. Ultrasound of pelvis of 10/22/2024. TECHNIQUE: Ultrasound of the pelvis is performed using both transabdominal and transvaginal transducers along with Doppler. Transvaginal imaging is performed due to inadequate visualization transabdominally. FINDINGS: The uterus measures 9.1 x 4.6 x 6.0 cm. No discrete fibroids appreciated. 1.7 x 0.8 x 1.0 cm solid hypoechoic lesion in the cervix either in or adjacent to the endocervical canal measured 1.6 x 0.9 x 0.8 cm on 10/30/2022. Differential considerations again include a cervical polyp versus submucosal fibroid. Endometrial thickness is 12 mm. Small amount of fluid in the pelvis. Right ovary measures 3.6 x 2.6 x 2.9 cm, volume 14.2 mm. 2.2 x 1.8 x 1.8 cm right ovarian simple cyst is likely physiologic. There is no indication for follow up imaging. 2.3 x 2.0 x 2.1 cm complex left ovarian cyst with multiple septations and complex internal echoes, possibly a hemorrhagic cyst, not previously identified. The left ovary measures 3.5 x 2.4 x 2.0 cm, volume 8.8 mm. US/US pelvic and transvaginal IMPRESSION: 1. A 1.7 x 0.8 x 1.0 cm solid hypoechoic lesion in the cervix either in or adjacent to the endocervical canal measured 1.6 x 0.9 x 0.8 cm on 10/30/2022. Differential considerations again include a cervical polyp versus submucosal fibroid. 2. A 2.3 cm complex left ovarian cyst with multiple septations and complex internal echoes, possibly a hemorrhagic cyst, not previously identified. Recommend follow up imaging in 4-6 weeks to confirm resolution and exclude underlying pathology.
== END 2023-12-26 11:29 | disposition home or self-care (01) ==
LOC: HO.US 11:28
PROVIDERS: PCP Internal Medicine; Visit Provider Obstetrics & Gynecology
DX: R10.2 Pelvic and perineal pain (principal)
CPT/HCPCS: 76830; 76856

== ENCOUNTER 2024-04-22 10:06 | Outpatient (AMB) | payer OTHER, SELFPAY ==
--- NOTE | 2024-04-22 10:07 | MHC.OFFVIS ---
Vital Signs 04/22/24 10:08 Height 5 ft 6 in Weight 153 lb BMI 24.7 BP 118/74 Blood Pressure Location Lt brachial Position Sitting Intake Visit Reasons: Ultrasound results Allergies No Known Allergies [No Known Allergies*] Allergy (Mild, Verified 04/22/24 10:09) NOT APPLICABLE HPI Comments Details: Presenting for ultrasound follow-up done in 12/29/2023 which showed the following: The uterus measures 9.1 x 4.6 x 6.0 cm. No discrete fibroids appreciated. 1.7 x 0.8 x 1.0 cm solid hypoechoic lesion in the cervix either in or adjacent to the endocervical canal measured 1.6 x 0.9 x 0.8 cm on 10/30/2022. Differential considerations again include a cervical polyp versus submucosal fibroid. Endometrial thickness is 12 mm. Small amount of fluid in the pelvis. Right ovary measures 3.6 x 2.6 x 2.9 cm, volume 14.2 mm. 2.2 x 1.8 x 1.8 cm right ovarian simple cyst is likely physiologic. There is no indication for follow up imaging. 2.3 x 2.0 x 2.1 cm complex left ovarian cyst with multiple septations and complex internal echoes, possibly a hemorrhagic cyst, not previously identified. The left ovary measures 3.5 x 2.4 x 2.0 cm, volume 8.8 mm. 12/26 hysteroscopy D&C showed normal endometrial cavity with no evidence of endocervical or endometrial pathology The patient is complaining of vaginal discharge associated with foul odor no vulvovaginal itching [facility] Medical History Left-sided low back pain with sciatica Dysuria Migraine with aura History of ectopic Obesity (BMI 30-39.9) Possible exposure to STD Fatigue RUQ abdominal pain Pelvic pain Ectopic Carpal tunnel syndrome History of fibromyalgia Hx of Lyme disease Surgical History H/O dilation and curettage H/O LEEP Family History Father CVD (cardiovascular disease) Diabetes mellitus Mother Hypertension History of fibromyalgia Paternal Aunt Ovarian cancer Paternal Grandmother History of breast cancer Social History Housing: Apartment Alcohol intake: never Patient Tobacco Use Status: Never used Tobacco Second Hand Smoke Exposure: No Substance Use Type: Marijuana Trauma History: with ex partner and father of her children. The children are in DCF custody currently awaiting trial for unification. service: No Current occupational status: unemployed Female Reproductive History Menstrual Age of Menarche: 14 Review of Systems Const All systems reviewed & are unremarkable except as noted in HPI and below Physical Exam Vital Signs: Last Vital Signs BP 118/74 04/22/24 10:08 BMI result Body Mass Index 24.7 General: Yes no CVA tenderness External Female Exam: normal external appearance and normal appearance of the urethra Speculum Exam - Vagina: normal appearance of the vagina, normal palpation, no lesions and no masses Speculum Exam - Cervix: normal appearance of the cervix, normal palpation, no lesions, no masses and nontender Bimanual exam- vagina & uterus: normal bimanual exam, normal palpation, uterine size normal, normal palpation, uterine shape normal, No Cervical tenderness present and non-tender Bimanual Exam- Adnexa, other: normal adnexae Back/Spine/Pelvis Back: no CVA tenderness Assessment & Plan Assessment & Plan (1) Complex ovarian cyst: Code(s): N83.299 - Other ovarian cyst, unspecified side Category: Medical Plan: Discussed with the patient the complex ovarian cyst by ultrasound. Discussed with the patient the Ultrasound findings, the main limitation of transvaginal ultrasonography alone as a diagnostic tool to distinguish benign from malignant masses relates to its lack of specificity and low positive predictive value for cancer. The differential diagnosis discussed with the patient includes the following but not limited to: benign and malignant gynecological and non-gynecological causes. Will repeat ultrasound . Instructions given the patient to schedule an appointment for a pelvic and a follow-up appointment within 2 weeks. All questions were answered & the patient verbalized understanding and agreed with the plan. (2) Bacterial vaginosis: Code(s): N76.0 - Acute vaginitis; B96.89 - Other specified bacterial agents as the cause of diseases classified elsewhere Category: Medical Plan: GC and chlamydia cultures with BV panel taken. Per CDC recommendation, will screen for STI, HepBs Ag, HIV, RPR, Hep C Ab ordered. Will treat with Flagyl 500 mg p.o. b.i.d. x 7 days, Instructions given to the patient to refrain from sexual activity or to use condoms consistently and correctly during the BV treatment regimen, not to douch, it might increase the risk for relapse, and to call if symptoms persist or recur. (3) Endocervical polyp: Code(s): N84.1 - Polyp of cervix uteri Category: Medical Plan: Discussed with the patient the finding on ultrasound endocervical lesion possible polyp or submucosal myoma that was present on ultrasound dated 10/24; given the history of hysteroscopy D&C with normal endocervical/endometrial cavity, the patient was reassured Orders: Orders Bacterial Vaginosis Panel Today N89.8 - Other specified noninflammatory disorders of vagina HIV Ab/Ag Today B96.89 - Other specified bacterial agents as the cause of diseases classified elsewhere, N76.0 - Acute vaginitis Syphilis Screen Today B96.89 - Other specified bacterial agents as the cause of diseases classified elsewhere, N76.0 - Acute vaginitis Hepatitis C Antibody Today B96.89 - Other specified bacterial agents as the cause of diseases classified elsewhere, N76.0 - Acute vaginitis CT NG by PCR Today N89.8 - Other specified noninflammatory disorders of vagina Hepatitis B Surface Antigen Today B96.89 - Other specified bacterial agents as the cause of diseases classified elsewhere, N76.0 - Acute vaginitis US pelvic and transvaginal 3 Months N83.299 - Other ovarian cyst, unspecified side Medications: New metronidazole 500 mg PO BID 7 days 14 tabs 0RF Coding Level of Care Code Est Pt Level 3 (38220) Diagnoses Complex ovarian cyst N83.299 Bacterial vaginosis N76.0; B96.89 Endocervical polyp N84.1
[2024-04-22 10:08] VITALS: BP 118/74; BMI 24.7
== END 2024-04-22 10:25 | disposition home or self-care (01) ==
PROVIDERS: PCP Internal Medicine; Visit Provider Obstetrics & Gynecology
DX: N83.299 Other ovarian cyst, unspecified side (principal); N76.0 Acute vaginitis; B96.89 Other specified bacterial agents as the cause of diseases classified elsewhere; N84.1 Polyp of cervix uteri
CPT/HCPCS: 99213

== ENCOUNTER 2024-04-22 10:06 | Outpatient (REF) | payer OTHER, SELFPAY ==
[2024-04-22 17:46] LABS: Bacterial Vaginosis PCR POSITIVE (Negative); Candida Group PCR NOT DETECTED (Not Detect); Candida glab krusei PCR NOT DETECTED (Not Detect); Trichomonas vaginalis PCR NOT DETECTED (Not Detect)
== END 2024-04-22 10:07 | disposition home or self-care (01) ==
LOC: HO.LNP 10:06
PROVIDERS: PCP Internal Medicine; Visit Provider Obstetrics & Gynecology
DX: N83.299 Other ovarian cyst, unspecified side (principal); N76.0 Acute vaginitis; B96.89 Other specified bacterial agents as the cause of diseases classified elsewhere
CPT/HCPCS: 0352U; 99212

== ENCOUNTER 2024-04-22 10:35 | Outpatient (REF) | payer OTHER, SELFPAY ==
[2024-04-22 18:35] LABS: CT PCR NOT DETECTED (Not Detect.); NG PCR NOT DETECTED (Not Detect.)
[2024-04-23 03:21] LABS: Syphilis Screen Nonreactive (Nonreactive)
[2024-04-23 04:33] LABS: HBsAGNum1 0.33 S/CO (0.00-0.99); HIV AB/AG Nonreactive (Nonreactive); HIV Num 1 0.05 S/CO (0.00-0.99); Hepatitis B Surface Antigen Negative (Negative); ~Hepatitis C Antibody Nonreactive (Nonreactive)
== END 2024-04-22 10:36 | disposition home or self-care (01) ==
LOC: HO.LAB 10:35
PROVIDERS: PCP Internal Medicine; Visit Provider Obstetrics & Gynecology
DX: N76.0 Acute vaginitis (principal); B96.89 Other specified bacterial agents as the cause of diseases classified elsewhere
CPT/HCPCS: 0353U; 86780; 86803; 87340; 87389

== ENCOUNTER 2024-05-28 12:58 | Outpatient (AMB) | payer MEDICAID, SELFPAY ==
[2024-05-28 13:00] VITALS: BP 142/90; PULSE 74; O2SAT 97; BMI 29.6
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
== END 2024-05-28 13:56 | disposition home or self-care (01) ==
PROVIDERS: PCP Internal Medicine; Visit Provider Internal Medicine
DX: Z00.00 Encounter for general adult medical examination without abnormal findings (principal); M79.7 Fibromyalgia; F41.9 Anxiety disorder, unspecified; F32.A Depression, unspecified; E66.3 Overweight; Z68.29 Body mass index [BMI] 29.0-29.9, adult
CPT/HCPCS: 96127; 99395

== ENCOUNTER 2024-06-16 11:31 | Outpatient (REF) | payer OTHER, SELFPAY ==
[2024-06-16 11:45] LABS: MANUAL DIFF FLAG NO
[2024-06-16 12:41] LABS: Estimated Average Glucose 111 mg/dL; Hemoglobin A1c % 5.5 % (<6.0)
[2024-06-16 13:04] LABS: Alanine Aminotransferase 11 U/L (0-31); Albumin Level 4.5 g/dL (3.5-5.0); Alkaline Phosphatase 54 U/L (39-117); Anion Gap 11 (12-20); Aspartate Amino Transferase 14 U/L (5-31); Bilirubin Total 0.4 mg/dL (0.0-1.0); Blood Urea Nitrogen 10 mg/dL (9-16); C Reactive Protein < 0.10 mg/dL (< or = 0.50); Calcium 9.6 mg/dL (8.4-10.2); Carbon Dioxide 25 mmol/L (22-29); Chloride 107 mmol/L (96-108); Cholesterol 214 mg/dL (<200); Estimated Glomerular Filt Rate > 60; Glucose Fasting 89 mg/dL (60-99); HDL Cholesterol 52 mg/dL (>40); LDL Cholesterol Calculated 150 mg/dL (<100); Potassium 4.2 mmol/L (3.3-5.1); Sodium 139 mmol/L (135-145); Total Protein 7.5 g/dL (6.5-8.0); Triglycerides 60 mg/dL (<150)
[2024-06-16 13:20] LABS: Erythrocyte Sedimentation Rate 7 MM/HR (0-20)
[2024-06-16 13:22] LABS: TSH reflex Free T4 1.15 uIU/mL (0.32-4.0); Vitamin D 25-OH Total 28.6 ng/mL (>30)
[2024-06-16 13:24] LABS: Folate 11.3 ng/mL (> or = 4.0); Vitamin B12 483 pg/mL (200-900)
[2024-06-16 13:37] LABS: Basophils Percent Auto 0.4 % (0-2); Eosinophils Percent Auto 0.3 % (0-4); Hematocrit 38.9 % (37.0-47.0); Hemoglobin 12.4 g/dl (12.0-16.0); Imm Gran Abs Auto 0.04 X10*3/uL (0.00-0.03); Imm Gran Pct Auto 0.4 % (0.0-0.4); Lymphocytes Absolute Auto 2.2 X10*3/uL (1.2-4.9); Lymphocytes Percent Auto 23.4 % (20-40); Mean Corpuscular HGB Conc 31.9 g/dl (31.0-35.0); Mean Corpuscular Hemoglobin 25.7 pg (27.0-33.0); Mean Corpuscular Volume 80.5 fL (80.0-98.0); Mean Platelet Volume 11.3 fL (9.4-12.3); Monocytes Absolute Auto 0.6 X10*3/uL (0.1-1.2); Monocytes Percent Auto 6.4 % (2-11); Neutrophils Absolute Auto 6.6 x10*3/uL (2.0-8.3); Neutrophils Percent Auto 69.1 % (45-73); Platelet Count 297 X10*3/uL (160-400); Red Blood Count 4.83 X10*6/uL (4.20-5.50); Red Cell Distribution Width 14.6 % (11.0-16.0); White Blood Count 9.6 X10*3/uL (4.8-10.8)
[2024-06-16 14:00] LABS: Appearance Urine Clear; Color Urine Yellow; Glucose Urine UA Negative (Negative); Leukocyte Esterase Urine Negative (Negative); Nitrite Urine Negative (Negative); PH 5.5 (5.0-9.0); Urine Blood Negative (Negative); Urine Ketones Negative (Negative); Urine Protein Negative (Neg-Trace)
== END 2024-06-16 11:32 | disposition home or self-care (01) ==
LOC: HO.LAB 11:31
PROVIDERS: PCP Internal Medicine; Visit Provider Internal Medicine
DX: Z00.00 Encounter for general adult medical examination without abnormal findings (principal); E53.8 Deficiency of other specified B group vitamins; D64.9 Anemia, unspecified; E55.9 Vitamin D deficiency, unspecified; R73.9 Hyperglycemia, unspecified; E78.00 Pure hypercholesterolemia, unspecified; M79.7 Fibromyalgia; R30.0 Dysuria
CPT/HCPCS: 36415; 80053; 80061; 81003; 82306; 82607; 82746; 83036; 84443; 85025; 85652; 86140

== ENCOUNTER 2024-07-23 08:43 | Outpatient (REF) | payer OTHER, SELFPAY ==
[2024-07-23 10:35] LABS: Influenza A PCR NEGATIVE (Negative); Influenza B PCR NEGATIVE (Negative); Resp Syncy Virus RNA Qual PCR NEGATIVE (Negative); SARS COV2 PCR INHOUSE NEGATIVE (Negative)
== END 2024-07-23 08:44 | disposition home or self-care (01) ==
LOC: HO.LAB 08:43
PROVIDERS: PCP Internal Medicine; Visit Provider Internal Medicine
DX: J98.8 Other specified respiratory disorders (principal)
CPT/HCPCS: 0241U

== ENCOUNTER 2024-07-27 14:56 | Outpatient (REF) | payer OTHER, SELFPAY ==
--- NOTE | ~2024-07-27 | US_ITS ---
EXAMINATION: US PELVIS CLINICAL INFORMATION: Ovarian cyst follow-up. First day of LMP at the moment of the ultrasound appointment. COMPARISON: Pelvic ultrasound 12/26/2023. TECHNIQUE: Ultrasound of the pelvis is performed using both transabdominal and transvaginal transducers along with Doppler. Transvaginal imaging is performed due to inadequate visualization transabdominally. FINDINGS: Anteverted uterus with normal morphology measuring 9.7 x 4.3 x 5.3 cm. In the lower third of the endometrial canal/upper cervix, there is redemonstration of a polypoid mass measuring 1.4 x 0.6 x 0.9 cm. Ovaries are normal in morphology with preserved flow at the moment of this examination. Right ovary measures 2.1 x 2.5 x 1.9 cm, 5 mL. Left ovary measures 2.4 x 2.2 x 2.2 cm, 6 mL. No adnexal mass. No free fluid. US/US pelvic and transvaginal IMPRESSION: Again noted polypoid mass in the lower endometrial canal/cervix that could represent an endometrial polyp or submucosal fibroid, recommend correlation with direct visualization and if indicated further characterization with pelvic MRI. Otherwise, no significant abnormality Electronically signed by: Kendra Harden MD 07/29/2024 04:19 PM EDT
== END 2024-07-27 14:57 | disposition home or self-care (01) ==
LOC: HO.US 14:56
PROVIDERS: PCP Internal Medicine; Visit Provider Obstetrics & Gynecology
DX: N83.299 Other ovarian cyst, unspecified side (principal)
CPT/HCPCS: 76830; 76856

== ENCOUNTER 2024-08-30 10:35 | Outpatient (REF) | payer OTHER, SELFPAY ==
[2024-08-30 18:18] LABS: Bacterial Vaginosis PCR POSITIVE (Negative); Candida Group PCR NOT DETECTED (Not Detect); Candida glab krusei PCR NOT DETECTED (Not Detect); Trichomonas vaginalis PCR NOT DETECTED (Not Detect)
[2024-08-31 05:12] LABS: CT PCR NOT DETECTED (Not Detect.); NG PCR NOT DETECTED (Not Detect.)
== END 2024-08-30 10:36 | disposition home or self-care (01) ==
LOC: HO.LNP 10:35
PROVIDERS: PCP Internal Medicine; Visit Provider Obstetrics & Gynecology
DX: Z11.3 Encounter for screening for infections with a predominantly sexual mode of transmission (principal); N83.292 Other ovarian cyst, left side; D25.9 Leiomyoma of uterus, unspecified; N76.0 Acute vaginitis; B96.89 Other specified bacterial agents as the cause of diseases classified elsewhere
CPT/HCPCS: 0352U; 87491; 87591; 99212

== ENCOUNTER 2024-08-30 10:35 | Outpatient (AMB) | payer OTHER, SELFPAY ==
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
[2024-08-30 10:43] VITALS: BP 118/66; BMI 29.5
== END 2024-08-30 11:05 | disposition home or self-care (01) ==
PROVIDERS: PCP Internal Medicine; Visit Provider Obstetrics & Gynecology
DX: N83.299 Other ovarian cyst, unspecified side (principal); D25.9 Leiomyoma of uterus, unspecified; N76.0 Acute vaginitis; B96.89 Other specified bacterial agents as the cause of diseases classified elsewhere
CPT/HCPCS: 99213

== ENCOUNTER 2024-09-07 09:52 | Outpatient (REF) | payer OTHER, SELFPAY ==
[2024-09-08 08:58] LABS: HBsAGNum1 0.31 S/CO (0.00-0.99); HIV AB/AG Nonreactive (Nonreactive); HIV Num 1 0.06 S/CO (0.00-0.99); Hepatitis B Surface Antigen Negative (Negative); ~Hepatitis C Antibody Nonreactive (Nonreactive)
[2024-09-08 09:11] LABS: Syphilis Screen Nonreactive (Nonreactive)
== END 2024-09-07 09:53 | disposition home or self-care (01) ==
LOC: HO.LAB 09:52
PROVIDERS: PCP Internal Medicine; Visit Provider Obstetrics & Gynecology
DX: N76.0 Acute vaginitis (principal); B96.89 Other specified bacterial agents as the cause of diseases classified elsewhere
CPT/HCPCS: 36415; 86780; 86803; 87340; 87389

== ENCOUNTER 2024-09-29 14:45 | Outpatient (AMB) | payer OTHER, SELFPAY ==
[2024-09-29 14:55] VITALS: BP 114/66; PULSE 64; O2SAT 100; BMI 31.0
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
== END 2024-09-29 15:49 | disposition home or self-care (01) ==
PROVIDERS: PCP Internal Medicine; Visit Provider Nurse Practitioner Family
DX: R10.10 Upper abdominal pain, unspecified (principal); K21.9 Gastro-esophageal reflux disease without esophagitis; K59.01 Slow transit constipation
CPT/HCPCS: 99214; G2211

== ENCOUNTER 2024-09-29 14:45 | Outpatient (REF) | payer OTHER, SELFPAY ==
[2024-09-29 17:02] LABS: Alanine Aminotransferase 14 U/L (0-31); Albumin Level 4.3 g/dL (3.5-5.0); Alkaline Phosphatase 52 U/L (39-117); Aspartate Amino Transferase 28 U/L (5-31); Bilirubin Direct 0.1 mg/dL (0.0-0.5); Bilirubin Total 0.4 mg/dL (0.0-1.0); Total Protein 7.5 g/dL (6.5-8.0)
[2024-09-29 17:16] LABS: TSH reflex Free T4 1.63 uIU/mL (0.32-4.0)
[2024-09-29 17:26] LABS: Folate 13.2 ng/mL (> or = 4.0); Vitamin B12 534 pg/mL (200-900)
[2024-10-04 15:23] LABS: Vitamin D 25-OH, D2 <4 ng/mL; Vitamin D 25-OH, D3 11 ng/mL; Vitamin D 25-OH, Total 11 ng/mL (30-100)
== END 2024-09-29 14:46 | disposition home or self-care (01) ==
LOC: HO.LAB 14:45
PROVIDERS: PCP Internal Medicine; Visit Provider Nurse Practitioner Family
DX: R19.7 Diarrhea, unspecified (principal); E55.9 Vitamin D deficiency, unspecified; R74.01 Elevation of levels of liver transaminase levels; R10.10 Upper abdominal pain, unspecified; K21.9 Gastro-esophageal reflux disease without esophagitis; K59.01 Slow transit constipation
CPT/HCPCS: 36415; 80076; 82306; 82607; 82746; 84443; 99212

== ENCOUNTER → 2024-10-29 07:43 | Outpatient (REF) | payer OTHER, SELFPAY ==
--- NOTE | ~2024-10-29 | NM_ITS ---
EXAMINATION: NM BILIARY TRACT CLINICAL INFORMATION: Right upper quadrant pain. Nausea. COMPARISON: Ultrasound abdomen 11/27/2023. TECHNIQUE: Following intravenous administration of 5 mCi of technetium 99m mebrofenin, imaging over the right upper quadrant was obtained up to 60 minutes. 1.4 mcg of CCK was given IV over 30 minutes and further imaging was obtained up to 1 hour. FINDINGS: There is normal hepatic uptake with no focal defects seen. There is good opacification of CBD by 29 minutes and small bowel by 32 minutes. Post-CCK the gallbladder ejection fraction at 10 minutes is 35% and 30 minutes is 94%. NM/NM hepatobiliary w pharm IMPRESSION: Normal HIDA scan. Normal gallbladder ejection fraction 94% at 30 minutes. Electronically signed by: Jayson Garcia MD 10/29/2024 01:04 PM ADA
== END ==
LOC: HO.NUCMED 07:43
PROVIDERS: PCP Internal Medicine; Visit Provider Nurse Practitioner Family
DX: R10.11 Right upper quadrant pain (principal)
CPT/HCPCS: 78227; A9537; J2805

== ENCOUNTER → 2024-10-29 07:44 | Outpatient (BNV) | payer OTHER, SELFPAY | PROVIDERS: PCP Internal Medicine; Visit Provider Radiology Diagnostic Radiology | DX: R10.11 Right upper quadrant pain (principal) | CPT/HCPCS: 78227 ==

== ENCOUNTER 2024-12-22 10:52 | Outpatient (AMB) | payer OTHER, SELFPAY ==
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
[2024-12-22 11:01] VITALS: BP 140/87; PULSE 75; O2SAT 99; BMI 32.0
--- OUTSIDE RECORDS SUMMARY | 2024-12-22 11:37 | XMS_ITS | Clinical Summary ---
Author Organization [facility] Address [address] [place] [address] Care Team Providers Care Shipping Assistant Name Role Phone Devonte Crawford MD Primary Care Provider [phone] Surgical History Surgery Date Site/Laterality Comments CERVICAL BIOPSY W/ LOOP ELECTRODE EXCISION PROCEDURE: AK CONIZATION CERVIX W/WO D&C RPR ELTRD EXC Medical History Medical History Date Comments Anxiety DX:Anxiety Depression DX:Depression Cervical dysplasia DX:Cervical d ysplasia Social History Tobacco Use Types Packs/Day Years Used Date Smoking Tobacco: Never Smokeless Tobacco: Never Alcohol Use Standard Drinks/Week Comments No 0 (1 standard drink = 0.6 oz pur e alcohol) Comments Unknown Sex and Gender Information Value Date Recorded Sex Assigned at Not on file Legal Sex Female 6:13 PM EST Gender Identity Not on file Sexual Orientation Not on file Obstetrics History Plan of Treatment Health Maintenance Due Date Last Done Comments DTaP,Tdap,and Td Vaccines (1 - Tdap) 2005 Hepatitis B Vaccines (1 of 3 - 19+ 3-dose series) 2005 Cervical Cancer Screening: P ap Smear 2007 COVID-19 Vaccine (2023-2 5 season) 2024 Influenza Vaccine (#1) 2024 HIB Vaccines Aged Out No longer eligi ble based on patient's age to complete this topic HPV Vaccines Aged Out No longer eligi ble based on patient's age to complete this topic Hepatitis A Vaccines Aged Out No long er eligible based on patient's age to complete this topic IPV Vaccines Aged Out No longer eligi ble based on patient's age to complete this topic MMR Vaccines Aged Out No longer eligi ble based on patient's age to complete this topic Meningococcal ACWY Vaccine Aged Out N o longer eligible based on patient's age to complete this topic Meningococcal B Vacine Aged Out No lo nger eligible based on patient's age to complete this topic Pneumococcal Vaccine: Pediat rics (0 to 5 Years) and At-Risk Patients (6 to 64 Years) Aged Out No longer eligible b ased on patient's age to complete this topic RSV Immunization Patients Un jasmyn 20 months Aged Out No longer eligible b ased on patient's age to complete this topic Varicella Vaccines Aged Out No longer eligible based on patient's age to complete this topic Care Teams Shipping Assistant Relationship Specialty Start Date End Date Devonte Crawford MD [address] [place] [address] Dr [address] [place], [place] PCP - General Internal Medicine 03/07/18
== END 2024-12-22 12:05 | disposition home or self-care (01) ==
PROVIDERS: PCP Internal Medicine; Visit Provider Nurse Practitioner Family
DX: R10.10 Upper abdominal pain, unspecified (principal); R10.11 Right upper quadrant pain; K21.9 Gastro-esophageal reflux disease without esophagitis; K59.01 Slow transit constipation
CPT/HCPCS: 99214; G2211

== ENCOUNTER → 2024-12-22 10:52 | Outpatient (BNVA) | payer OTHER, SELFPAY | PROVIDERS: PCP Internal Medicine; Visit Provider Nurse Practitioner Family | DX: K21.9 Gastro-esophageal reflux disease without esophagitis (principal); R10.11 Right upper quadrant pain; K59.01 Slow transit constipation | CPT/HCPCS: 99212 ==

== ENCOUNTER 2025-01-10 09:14 | Outpatient (AMB) | payer OTHER, SELFPAY ==
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
--- OUTSIDE RECORDS SUMMARY | 2025-01-10 09:52 | XMS_ITS | Clinical Summary ---
Author Organization [facility] Address [address] [place] [address] Care Team Providers Care Hand Thermal Cutter Name Role Phone Devonte Crawford MD Primary Care Provider [phone] Surgical History Surgery Date Site/Laterality Comments CERVICAL BIOPSY W/ LOOP ELECTRODE EXCISION PROCEDURE: CT CONIZATION CERVIX W/WO D&C RPR ELTRD EXC [...] age to complete this topic Care Teams Hand Thermal Cutter Relationship Specialty Start Date End Date Devonte Crawford MD [address] [place] [address] Dr [address] [place], [place] PCP - General Internal Medicine 03/07/18
== END 2025-01-10 09:27 | disposition home or self-care (01) ==
PROVIDERS: PCP Internal Medicine; Visit Provider Surgery
DX: R10.11 Right upper quadrant pain (principal); R10.31 Right lower quadrant pain
CPT/HCPCS: 99204

== ENCOUNTER → 2025-01-10 09:14 | Outpatient (BNVA) | payer OTHER, SELFPAY | PROVIDERS: PCP Internal Medicine; Visit Provider Surgery | DX: R10.11 Right upper quadrant pain (principal); R10.31 Right lower quadrant pain | CPT/HCPCS: 99202 ==

== ENCOUNTER 2025-01-25 10:58 | Outpatient (AMB) | payer OTHER, SELFPAY ==
[2025-01-25 11:13] VITALS: BP 116/68
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
--- OUTSIDE RECORDS SUMMARY | 2025-01-25 13:25 | XMS_ITS | Clinical Summary ---
Author Organization [facility] Address [address] [place] [address] Care Team Providers Care Manuscripts Curator Name Role Phone Devonte Crawford MD Primary Care Provider [phone] Surgical History Surgery Date Site/Laterality Comments CERVICAL BIOPSY W/ LOOP ELECTRODE EXCISION PROCEDURE: [place] CONIZATION CERVIX W/WO D&C RPR ELTRD EXC [...] age to complete this topic Care Teams Manuscripts Curator Relationship Specialty Start Date End Date Devonte Crawford MD [address] [place] [address] Dr [address] [place], [place] PCP - General Internal Medicine 03/07/18
== END 2025-01-25 11:32 | disposition home or self-care (01) ==
LOC: HO.HWS 10:58
PROVIDERS: PCP Internal Medicine; Visit Provider Obstetrics & Gynecology
DX: Z72.51 High risk heterosexual behavior (principal); Z30.09 Encounter for other general counseling and advice on contraception
CPT/HCPCS: 99213

== ENCOUNTER → 2025-01-25 10:58 | Outpatient (BNVA) | payer OTHER, SELFPAY | PROVIDERS: PCP Internal Medicine; Visit Provider Obstetrics & Gynecology | DX: Z72.51 High risk heterosexual behavior (principal); Z30.09 Encounter for other general counseling and advice on contraception | CPT/HCPCS: 81025; 99212 ==

== ENCOUNTER 2025-06-08 09:04 | Outpatient (REF) | payer OTHER, SELFPAY ==
--- NOTE | ~2025-06-08 | XR_ITS ---
EXAMINATION: Cervical spine, chest, right knee and lumbar spine. CLINICAL INDICATION: Pain. COMPARISON: Chest x-ray 11/27/2023 cervical spine 03/08/2016. TECHNIQUE: Cervical spine 3 views, chest 2 views, right knee 4 views and lumbar spine 3 views. FINDINGS: Cervical spine: There is mild straightening of cervical lordosis. There is loss of C6/7 disc heights with moderate ventral spondylosis at C6-7 mild ventral spondylosis at C5-6 disc level. Rest the disc heights, vertebral heights and alignment is preserved. No visible acute fracture, dislocation or subluxation seen. The prevertebral soft tissues are normal. Chest x-ray: The lungs are well-expanded and clear acute process. The heart size and pulmonary vascularity is normal. No gross bony abnormality seen. There are bilateral nipple rings. Right knee: The tricompartmental joint spaces preserved. No visible acute fracture, dislocation or subluxation seen. No bony erosive changes. The soft tissues are normal. No joint effusion seen. Lumbar spine: There is normal lumbar lordosis. The vertebral heights, alignment and disc heights are normal. No visible acute fracture, dislocation or subluxation seen. SI joints are symmetrical. No lytic or sclerotic process seen. The paravertebral soft tissues are normal. XR/XR lumbar spine 2-3V IMPRESSION: Moderate ventral spondylosis C6/7 and mild ventral spondylosis C5-6 disc level. These findings are new compared to last exam 03/08/2016. No visible acute fracture or dislocation seen. Unremarkable chest x-ray, right knee and lumbar spine. Electronically signed by: Jayson Garcia MD 06/08/2025 12:22 PM EDT
--- NOTE | ~2025-06-08 | XR_ITS ---
EXAMINATION: Cervical spine, chest, right knee and lumbar spine. CLINICAL INDICATION: Pain. COMPARISON: Chest x-ray 11/27/2023 cervical spine 03/08/2016. TECHNIQUE: Cervical spine 3 views, chest 2 views, right knee 4 views and lumbar spine 3 views. FINDINGS: Cervical spine: There is mild straightening of cervical lordosis. There is loss of C6/7 disc heights with moderate ventral spondylosis at C6-7 mild ventral spondylosis at C5-6 disc level. Rest the disc heights, vertebral heights and alignment is preserved. No visible acute fracture, dislocation or subluxation seen. The prevertebral soft tissues are normal. Chest x-ray: The lungs are well-expanded and clear acute process. The heart size and pulmonary vascularity is normal. No gross bony abnormality seen. There are bilateral nipple rings. Right knee: The tricompartmental joint spaces preserved. No visible acute fracture, dislocation or subluxation seen. No bony erosive changes. The soft tissues are normal. No joint effusion seen. Lumbar spine: There is normal lumbar lordosis. The vertebral heights, alignment and disc heights are normal. No visible acute fracture, dislocation or subluxation seen. SI joints are symmetrical. No lytic or sclerotic process seen. The paravertebral soft tissues are normal. XR/XR knee RT 4V IMPRESSION: Moderate ventral spondylosis C6/7 and mild ventral spondylosis C5-6 disc level. These findings are new compared to last exam 03/08/2016. No visible acute fracture or dislocation seen. Unremarkable chest x-ray, right knee and lumbar spine. Electronically signed by: Jayson Garcia MD 06/08/2025 12:22 PM EDT
--- NOTE | ~2025-06-08 | XR_ITS ---
EXAMINATION: Cervical spine, chest, right knee and lumbar spine. CLINICAL INDICATION: Pain. COMPARISON: Chest x-ray 11/27/2023 cervical spine 03/08/2016. TECHNIQUE: Cervical spine 3 views, chest 2 views, right knee 4 views and lumbar spine 3 views. FINDINGS: Cervical spine: There is mild straightening of cervical lordosis. There is loss of C6/7 disc heights with moderate ventral spondylosis at C6-7 mild ventral spondylosis at C5-6 disc level. Rest the disc heights, vertebral heights and alignment is preserved. No visible acute fracture, dislocation or subluxation seen. The prevertebral soft tissues are normal. Chest x-ray: The lungs are well-expanded and clear acute process. The heart size and pulmonary vascularity is normal. No gross bony abnormality seen. There are bilateral nipple rings. Right knee: The tricompartmental joint spaces preserved. No visible acute fracture, dislocation or subluxation seen. No bony erosive changes. The soft tissues are normal. No joint effusion seen. Lumbar spine: There is normal lumbar lordosis. The vertebral heights, alignment and disc heights are normal. No visible acute fracture, dislocation or subluxation seen. SI joints are symmetrical. No lytic or sclerotic process seen. The paravertebral soft tissues are normal. XR/XR cervical spine 3V IMPRESSION: Moderate ventral spondylosis C6/7 and mild ventral spondylosis C5-6 disc level. These findings are new compared to last exam 03/08/2016. No visible acute fracture or dislocation seen. Unremarkable chest x-ray, right knee and lumbar spine. Electronically signed by: Jayson Garcia MD 06/08/2025 12:22 PM EDT
--- NOTE | ~2025-06-08 | XR_ITS ---
EXAMINATION: Cervical spine, chest, right knee and lumbar spine. CLINICAL INDICATION: Pain. COMPARISON: Chest x-ray 11/27/2023 cervical spine 03/08/2016. TECHNIQUE: Cervical spine 3 views, chest 2 views, right knee 4 views and lumbar spine 3 views. FINDINGS: Cervical spine: There is mild straightening of cervical lordosis. There is loss of C6/7 disc heights with moderate ventral spondylosis at C6-7 mild ventral spondylosis at C5-6 disc level. Rest the disc heights, vertebral heights and alignment is preserved. No visible acute fracture, dislocation or subluxation seen. The prevertebral soft tissues are normal. Chest x-ray: The lungs are well-expanded and clear acute process. The heart size and pulmonary vascularity is normal. No gross bony abnormality seen. There are bilateral nipple rings. Right knee: The tricompartmental joint spaces preserved. No visible acute fracture, dislocation or subluxation seen. No bony erosive changes. The soft tissues are normal. No joint effusion seen. Lumbar spine: There is normal lumbar lordosis. The vertebral heights, alignment and disc heights are normal. No visible acute fracture, dislocation or subluxation seen. SI joints are symmetrical. No lytic or sclerotic process seen. The paravertebral soft tissues are normal. XR/XR chest 2V IMPRESSION: Moderate ventral spondylosis C6/7 and mild ventral spondylosis C5-6 disc level. These findings are new compared to last exam 03/08/2016. No visible acute fracture or dislocation seen. Unremarkable chest x-ray, right knee and lumbar spine. Electronically signed by: Jayson Garcia MD 06/08/2025 12:22 PM EDT
[2025-06-08 10:35] LABS: MANUAL DIFF FLAG NO
[2025-06-08 10:45] LABS: Hematocrit 38.8 % (37.0-47.0); Hemoglobin 12.0 g/dl (12.0-16.0); Imm Gran Abs Auto 0.05 X10*3/uL (0.00-0.03); Imm Gran Pct Auto 0.5 % (0.0-0.4); Lymphocytes Absolute Auto 2.5 X10*3/uL (1.2-4.9); Mean Corpuscular HGB Conc 30.9 g/dl (31.0-35.0); Mean Corpuscular Hemoglobin 25.2 pg (27.0-33.0); Mean Corpuscular Volume 81.3 fL (80.0-98.0); NRBC Abs Auto 0.000 X10*3/uL (0.0-0.012); NRBC Pct Auto 0.0 /100WBC (0.0-0.2); Platelet Count 277 X10*3/uL (160-400); Red Blood Count 4.77 X10*6/uL (4.20-5.50); White Blood Count 10.4 X10*3/uL (4.8-10.8)
[2025-06-08 11:05] LABS: Appearance Urine Clear; Glucose Urine UA Negative (Negative); PH 6.5 (5.0-9.0); Specific Gravity - Urine 1.020 (1.005-1.025); UMIC TRIGGER UACC YES
[2025-06-08 11:36] LABS: Alanine Aminotransferase 14 U/L (0-31); Albumin Level 4.3 g/dL (3.5-5.0); Alkaline Phosphatase 50 U/L (39-117); Anion Gap 10 (12-20); Aspartate Amino Transferase 21 U/L (5-31); Blood Urea Nitrogen 9 mg/dL (9-16); Calcium 8.7 mg/dL (8.4-10.2); Carbon Dioxide 26 mmol/L (22-29); Chloride 108 mmol/L (96-108); Cholesterol 183 mg/dL (<200); Estimated Glomerular Filt Rate > 60; HDL Cholesterol 54 mg/dL (>40); Potassium 4.3 mmol/L (3.3-5.1); Sodium 140 mmol/L (135-145); Total Protein 7.0 g/dL (6.5-8.0); Triglycerides 90 mg/dL (<150)
[2025-06-08 12:02] LABS: Folate 9.1 ng/mL (> or = 4.0); Vitamin B12 407 pg/mL (200-900)
[2025-06-11 12:02] LABS: Anti Nuclear Antibody Screen NEGATIVE (NEGATIVE)
== END 2025-06-08 09:05 | disposition home or self-care (01) ==
LOC: HO.XRAY 09:04
PROVIDERS: PCP Internal Medicine; Visit Provider Internal Medicine
DX: Z00.00 Encounter for general adult medical examination without abnormal findings (principal); R10.9 Unspecified abdominal pain; M54.50 Low back pain, unspecified; M54.2 Cervicalgia; R07.89 Other chest pain; D25.9 Leiomyoma of uterus, unspecified; E55.9 Vitamin D deficiency, unspecified; M79.7 Fibromyalgia; F41.9 Anxiety disorder, unspecified; F32.A Depression, unspecified; E66.9 Obesity, unspecified; D64.9 Anemia, unspecified; E78.00 Pure hypercholesterolemia, unspecified; R30.0 Dysuria; M25.50 Pain in unspecified joint; E53.8 Deficiency of other specified B group vitamins; M25.561 Pain in right knee; Z13.31 Encounter for screening for depression; Z13.39 Encounter for screening examination for other mental health and behavioral disorders
CPT/HCPCS: 36415; 71046; 72040; 72100; 73564; 80053; 80061; 81001; 81003; 82306; 82607; 82746; 84443; 85025; 85652; 86038; 86140; 86431; 96127; 99395

== ENCOUNTER 2025-06-08 09:04 | Outpatient (AMB) | payer OTHER, SELFPAY ==
[2025-06-08 09:16] VITALS: BP 108/64; PULSE 63; O2SAT 99; BMI 32.3
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
--- OUTSIDE RECORDS SUMMARY | 2025-06-08 09:22 | XMS_ITS | Clinical Summary ---
Author Organization [facility] Address [address] [place] [address] Care Team Providers Care Box Finisher Name Role Phone Devonte Crawford MD Primary Care Provider [phone] Surgical History Surgery Date Site/Laterality Comments CERVICAL BIOPSY W/ LOOP ELECTRODE EXCISION PROCEDURE: OR CONIZATION CERVIX W/WO D&C RPR ELTRD EXC [...] Screening: P ap Smear 2007 COVID-19 Vaccine ( - 2023-2 5 season) 2024 Depression Screening 11/03/2024 Influenza Vaccine (#1) 2025 HIB Vaccines Aged Out No longer eligi [...] age to complete this topic Meningococcal B Vaccine Aged Out No l onger eligible based on patient's age to complete this topic Pneumococcal Vaccine: Pediat rics (0 to 5 Years) and At-Risk Patients (6 to 49 Years) Aged Out No longer eligible b ased on patient's age to complete this topic RSV Immunization Patients Un jasmyn 20 months Aged Out No longer eligible b ased on patient's age to complete this topic Varicella Vaccines Aged Out No longer eligible based on patient's age to complete this topic Care Teams Box Finisher Relationship Specialty Start Date End Date Devonte Crawford MD [address] [place] [address] Dr [address] [place], [place] PCP - General Internal Medicine 03/07/18
== END 2025-06-08 10:17 | disposition home or self-care (01) ==
LOC: HO.HMCH 09:05
PROVIDERS: PCP Internal Medicine; Visit Provider Internal Medicine
DX: Z00.00 Encounter for general adult medical examination without abnormal findings (principal); R10.9 Unspecified abdominal pain; M54.50 Low back pain, unspecified; M54.2 Cervicalgia; R07.89 Other chest pain; D25.9 Leiomyoma of uterus, unspecified; E55.9 Vitamin D deficiency, unspecified; M79.7 Fibromyalgia; F41.9 Anxiety disorder, unspecified; F32.A Depression, unspecified; E66.9 Obesity, unspecified

== ENCOUNTER → 2025-06-08 10:39 | Outpatient (BNV) | payer OTHER, SELFPAY | PROVIDERS: PCP Internal Medicine; Visit Provider Radiology Diagnostic Radiology | DX: M25.561 Pain in right knee (principal); M54.50 Low back pain, unspecified; M47.812 Spondylosis without myelopathy or radiculopathy, cervical region; R07.9 Chest pain, unspecified | CPT/HCPCS: 71046; 72040; 72100; 73564 ==

== ENCOUNTER 2025-06-29 08:41 | Outpatient (AMB) | payer OTHER, SELFPAY ==
--- NOTE | 2025-06-29 08:46 | A.OFFVIS_ITS ---
Vital Signs 06/29/25 08:47 Height 5 ft Weight 165 lb BMI 32.2 Intake Visit Reasons: vaginal odor Channel Manager Required: No Information Interpreted: non-clinical & clinical Environmental Compliance Officer: Environmental Compliance Officer Present (Diamond MCPHERSON) Accompanied by: Self / Same As Patient Allergies No Known Allergies (No Known Allergies*) Allergy (Mild, Verified 06/29/25 08:48) NOT APPLICABLE HPI Comments Details: The patient is presenting complaining of vaginal discharge associated with foul odor, no other associated symptoms, vaginal itching . In addition the patient is complaining of right pelvic pain of few days' duration no fever or chills no nausea or vomiting [facility] Medical History Vitamin D deficiency Overweight (BMI 25.0-29.9) Left-sided low back pain with sciatica Dysuria Migraine with aura History of ectopic Obesity (BMI 30-39.9) Possible exposure to STD Fatigue Pelvic pain Ectopic Carpal tunnel syndrome History of fibromyalgia Hx of Lyme disease Surgical History RUQ abdominal pain H/O dilation and curettage H/O LEEP Family History Father CVD (cardiovascular disease) Diabetes mellitus Mother Hypertension History of fibromyalgia Paternal Aunt Ovarian cancer Paternal Grandmother History of breast cancer Social History Housing: Apartment Alcohol intake: never Patient Tobacco Use Status: Never used Tobacco Second Hand Smoke Exposure: No Substance Use Type: Marijuana Trauma History: with ex partner and father of her children. The children are in [facility] custody currently awaiting trial for unification. service: No Current occupational status: unemployed Female Reproductive History Menstrual Age of Menarche: 14 Review of Systems Const All systems reviewed & are unremarkable except as noted in HPI and below Physical Exam Vital Signs: BMI result Body Mass Index 32.2 General: Yes no CVA tenderness External Female Exam: normal external appearance and normal appearance of the urethra Speculum Exam - Vagina: normal appearance of the vagina, normal palpation, no lesions and no masses Speculum Exam - Cervix: normal appearance of the cervix, normal palpation, no lesions, no masses and nontender Bimanual exam- vagina & uterus: normal bimanual exam, normal palpation, uterine size normal, normal palpation, uterine shape normal, No Cervical tenderness present and non-tender Bimanual Exam- Adnexa, other: normal adnexae Back/Spine/Pelvis Back: no CVA tenderness Assessment & Plan Assessment & Plan (1) Pelvic pain: Code(s): R10.2 - Pelvic and perineal pain Category: Medical Plan: Urine test done in the office was negative. GC and chlamydia taken and pelvic ultrasound ordered. Discussed with the patient the differential diagnosis of pelvic pain including but not limited to adnexal, uterine masses, pelvic infections (PID), GI the (Irritable bowel syndrome, diverticulitis, others), musculoskeletal, myofascial pain abdominal wall , adhesions, endometriosis, psychological and others causes. Will check results and treat accordingly. All questions answered, the patient verbalized understanding. Instructed the patient to schedule an ultrasound and a follow-up appointment in 2 weeks. All questions answered, the patient verbalized understanding and agreed with the plan. (2) Bacterial vaginosis: Code(s): N76.0 - Acute vaginitis; B96.89 - Other specified bacterial agents as the cause of diseases classified elsewhere Category: Medical Plan: GC and chlamydia cultures with BV panel taken. Will treat with Flagyl 500 mg p.o. b.i.d. x 7 days, Instructions given to the patient to refrain from sexual activity or to use condoms consistently and correctly during the BV treatment regimen, not to douch, it might increase the risk for relapse, and to call if symptoms persist or recur. (3) Microscopic hematuria: Code(s): R31.29 - Other microscopic hematuria Category: Medical Plan: Urine dip showed microscopic hematuria, urine culture sent. Will repeat urine dip in 2 weeks. Discussed with the patient the possible causes of microscopic hematuria including but not limited to: interstitial cystitis, polyps, stones, masses, urethral inflammatory processes and others. If Urine Culture is negati ve and repeat urine dip in 2 weeks shows persistent microscopic hematuria, will proceed with CT abdomen/pelvis and urology referral. Instructions given the patient to schedule a 2 week urine dip follow-up appointment. All questions answered and the patient verbalized understanding. Orders: Orders CT NG by PCR Vag/Cerv Today N89.8 - Other specified noninflammatory disorders of vagina Bacterial Vaginosis Panel Today N89.8 - Other specified noninflammatory dis orders of vagina US pelvic and transvaginal Today R10.2 - Pelvic and perineal pain Medications: New metronidazole 500 mg PO BID 14 tabs 0RF 7 days Coding Level of Care Code Est Pt Level 3 (17002) Diagnoses Pelvic pain R10.2 Bacterial vaginosis N76.0; B96.89 Microscopic hematuria R31.29
[2025-06-29 08:47] VITALS: BMI 32.2
--- OUTSIDE RECORDS SUMMARY | 2025-06-29 09:02 | XMS_ITS | Clinical Summary ---
Author Organization [facility] Address [address] [place] [address] Care Team Providers Care Shrimp Trawler Captain Name Role Phone Devonte Crawford MD Primary Care Provider [phone] Surgical History Surgery Date Site/Laterality Comments CERVICAL BIOPSY W/ LOOP ELECTRODE EXCISION PROCEDURE: [place] CONIZATION CERVIX W/WO D&C RPR ELTRD EXC [...] age to complete this topic Care Teams Shrimp Trawler Captain Relationship Specialty Start Date End Date Devonte Crawford MD [address] [place] [address] Dr [address] [place], [place] PCP - General Internal Medicine 03/07/18
== END 2025-06-29 09:16 | disposition home or self-care (01) ==
LOC: HO.HWS 08:41
PROVIDERS: PCP Internal Medicine; Visit Provider Obstetrics & Gynecology
DX: R10.2 Pelvic and perineal pain (principal); N76.0 Acute vaginitis; B96.89 Other specified bacterial agents as the cause of diseases classified elsewhere; R31.29 Other microscopic hematuria
CPT/HCPCS: 99213

== ENCOUNTER 2025-06-29 08:41 | Outpatient (REF) | payer OTHER, SELFPAY ==
[2025-06-30 04:52] LABS: Bacterial Vaginosis PCR POSITIVE (Negative); Candida Group PCR NOT DETECTED (Not Detect); Candida glab krusei PCR NOT DETECTED (Not Detect); Trichomonas vaginalis PCR NOT DETECTED (Not Detect)
[2025-06-30 05:23] LABS: CT PCR DETECTED (Not Detect.); NG PCR NOT DETECTED (Not Detect.)
== END 2025-06-29 08:42 | disposition home or self-care (01) ==
LOC: HO.LNP 08:41
PROVIDERS: PCP Internal Medicine; Visit Provider Obstetrics & Gynecology
DX: N76.0 Acute vaginitis (principal); B96.89 Other specified bacterial agents as the cause of diseases classified elsewhere; R31.29 Other microscopic hematuria; R10.2 Pelvic and perineal pain; Z11.3 Encounter for screening for infections with a predominantly sexual mode of transmission; Z11.8 Encounter for screening for other infectious and parasitic diseases; Z11.2 Encounter for screening for other bacterial diseases
CPT/HCPCS: 81515; 87086; 87491; 87591; 99212

== ENCOUNTER 2025-07-20 08:57 | Outpatient (REF) | payer OTHER, SELFPAY ==
--- NOTE | ~2025-07-20 | US_ITS ---
EXAMINATION: US PELVIS CLINICAL INFORMATION: Pelvic and perineal pain. COMPARISON: July 27, 2024 1 reporting a 1.4 cm polypoid lesion. TECHNIQUE: Ultrasound of the pelvis is performed using both transabdominal and transvaginal transducers along with Doppler. Transvaginal imaging is performed due to inadequate visualization transabdominally. FINDINGS: Uterus: The uterus is anteversion flexion and measures 10 x 4 x 5 cm. The cervix is closed. There is a questionable 1 mm ovoid shaped isoechoic structure in the submucosal endocervical canal region. Small nabothian cysts. The double wall endometrial thickness is 7 mm. Adnexa: The ovaries aren't identified with flow on color Doppler interrogation.. No free fluid in the cul-de-sac. Right ovary measures 3 x 2 x 2 cm. Volume: 8 cc scattered follicles. No gross solid or cystic lesion. Left ovary measures 3 x 2 x 2 cm. Volume: 7 cc. Scattered follicles with a 1.2 cm dominant follicle. US/US pelvic and transvaginal IMPRESSION: Questionable 1 cm submucosal polypoid lesion in the endocervical canal. Recommend direct inspection. No ovarian torsion. Electronically signed by: Chidi Cruz MD 07/20/2025 09:56 AM EDT
--- OUTSIDE RECORDS SUMMARY | 2025-07-20 10:30 | XMS_ITS | Clinical Summary ---
Author Organization [facility] Address [address] [place] [address] Care Team Providers Care Waterproofing Mixer Name Role Phone Devonte Crawford MD Primary Care Provider [phone] Surgical History Surgery Date Site/Laterality Comments CERVICAL BIOPSY W/ LOOP ELECTRODE EXCISION PROCEDURE: [place] CONIZATION CERVIX W/WO D&C RPR ELTRD EXC [...] Cervical Cancer Screening: P ap Smear 2007 Depression Screening 11/03/2024 COVID-19 Vaccine (2023-2 5 season) 2025 Influenza Vaccine (#1) 2025 HIB Vaccines Aged [...] age to complete this topic Care Teams Waterproofing Mixer Relationship Specialty Start Date End Date Devonte Crawford MD [address] [place] [address] Dr [address] [place], [place] PCP - General Internal Medicine 03/07/18
[2025-07-20 11:23] LABS: Appearance Urine Clear; Glucose Urine UA Negative (Negative); PH 6.5 (5.0-9.0); Specific Gravity - Urine <= 1.005 (1.005-1.025)
[2025-07-21 04:52] LABS: Syphilis Screen Nonreactive (Nonreactive)
[2025-07-21 06:17] LABS: HBsAGNum1 0.42 S/CO (0.00-0.99); HIV Num 1 0.06 S/CO (0.00-0.99); Hepatitis B Surface Antigen Negative (Negative); ~HepC Num1 0.08 S/CO (0.00-0.79); ~Hepatitis C Antibody Nonreactive (Nonreactive)
== END 2025-07-20 08:58 | disposition home or self-care (01) ==
LOC: HO.US 08:57
PROVIDERS: PCP Internal Medicine; Visit Provider Obstetrics & Gynecology
DX: Z00.00 Encounter for general adult medical examination without abnormal findings (principal); Z20.2 Contact with and (suspected) exposure to infections with a predominantly sexual mode of transmission; Z11.3 Encounter for screening for infections with a predominantly sexual mode of transmission; Z11.4 Encounter for screening for human immunodeficiency virus [HIV]; Z11.59 Encounter for screening for other viral diseases; R10.2 Pelvic and perineal pain; D25.9 Leiomyoma of uterus, unspecified; R30.0 Dysuria
CPT/HCPCS: 36415; 76830; 76856; 81003; 86780; 86803; 87340; 87389

== ENCOUNTER → 2025-07-20 09:00 | Outpatient (BNV) | payer OTHER, SELFPAY | PROVIDERS: PCP Internal Medicine; Visit Provider Radiology Diagnostic Radiology | DX: N84.1 Polyp of cervix uteri (principal) | CPT/HCPCS: 76830; 76856 ==

== ENCOUNTER 2025-08-02 12:28 | Outpatient (AMB) | payer OTHER, SELFPAY ==
--- NOTE | 2025-08-02 12:29 | MHC.OFFVIS ---
Vital Signs 08/02/25 12:32 Height 5 ft Weight 165 lb BMI 32.2 Intake Visit Reasons: OVI/urine dip/ u/s results Printing Plate Setter Required: No Information Interpreted: non-clinical & clinical Printing Equipment Mechanic Apprentice: Printing Equipment Mechanic Apprentice Present (Diamond MCPHERSON) Accompanied by: Self / Same As Patient Allergies No Known Allergies (No Known Allergies*) Allergy (Mild, Verified 08/02/25 12:33) NOT APPLICABLE HPI Comments Details: Presenting for OVI, urine dip and ultrasound follow-up. The patient is presenting for a test of cure. The patient is in the process of taking the antibiotics course and still have 2 days left; The patient reports no intercourse since then. Pelvic ultrasound recently showed the following: Uterus: The uterus is anteversion flexion and measures 10 x 4 x 5 cm. The cervix is closed. There is a questionable 1 mm ovoid shaped isoechoic structure in the submucosal endocervical canal region. Small nabothian cysts. The double wall endometrial thickness is 7 mm. Adnexa: The ovaries aren't identified with flow on color Doppler interrogation.. No free fluid in the cul-de-sac. Right ovary measures 3 x 2 x 2 cm. Volume: 8 cc scattered follicles. No gross solid or cystic lesion. Left ovary measures 3 x 2 x 2 cm. Volume: 7 cc. Scattered follicles with a 1.2 cm dominant follicle. US/US pelvic and transvaginal IMPRESSION: Questionable 1 cm submucosal polypoid lesion in the endocervical canal. Recommend direct inspection. No ovarian torsion. PFSH Medical History Vitamin D deficiency Overweight (BMI 25.0-29.9) Left-sided low back pain with sciatica Dysuria Migraine with aura History of ectopic Obesity (BMI 30-39.9) Possible exposure to STD Fatigue Pelvic pain Ectopic Carpal tunnel syndrome History of fibromyalgia Hx of Lyme disease Surgical History RUQ abdominal pain H/O dilation and curettage H/O LEEP Family History Father CVD (cardiovascular disease) Diabetes mellitus Mother Hypertension History of fibromyalgia Paternal Aunt Ovarian cancer Paternal Grandmother History of breast cancer Social History Housing: Apartment Alcohol intake: never Patient Tobacco Use Status: Never used Tobacco Second Hand Smoke Exposure: No Substance Use Type: Marijuana Trauma History: with ex partner and father of her children. The children are in [employer] custody currently awaiting trial for unification. service: No Current occupational status: unemployed Female Reproductive History Menstrual Age of Menarche: 14 Review of Systems Const All systems reviewed & are unremarkable except as noted in HPI and below Physical Exam Vital Signs: BMI result Body Mass Index 32.2 General: Yes no CVA tenderness External Female Exam: normal external appearance and normal appearance of the urethra Speculum Exam - Vagina: normal appearance of the vagina, normal palpation, no lesions and no masses Speculum Exam - Cervix: normal appearance of the cervix, normal palpation, no lesions, no masses and nontender Bimanual exam- vagina & uterus: normal bimanual exam, normal palpation, uterine size normal, normal palpation, uterine shape normal, No Cervical tenderness present and non-tender Bimanual Exam- Adnexa, other: normal adnexae Back/Spine/Pelvis Back: no CVA tenderness Results AMB Urinalysis Dipstick UR Leukocytes Negative Last Edit by Diamond Elizondo CMA on 08/02/25 12:42 UR Nitrite Negative Last Edit by Diamond Elizondo CMA on 08/02/25 12:42 UR Urobilinogen Normal Last Edit by Diamond Elizondo CMA on 08/02/25 12:42 UR Protein Negative Last Edit by Diamond Elizondo CMA on 08/02/25 12:42 UR Ph 8.0 Last Edit by Diamond Elizondo CMA on 08/02/25 12:42 UR Blood Negative Last Edit by Diamond Elizondo CMA on 08/02/25 12:42 UR Specific Somers 1.010 Last Edit by Diamond Elizondo CMA on 08/02/25 12:42 UR Ketone Negative Last Edit by Diamond Elizondo CMA on 08/02/25 12:42 UR Bilirubin Negative Last Edit by Diamond Elizondo CMA on 08/02/25 12:42 UR Glucose Negative Last Edit by Diamond Elizondo CMA on 08/02/25 12:42 Assessment & Plan Assessment & Plan (1) Microscopic hematuria: Code(s): R31.29 - Other microscopic hematuria Category: Medical Plan: Urine dip repeated showed no evidence of microscopic hematuria, the patient was reassured (2) Endocervical polyp: Code(s): N84.1 - Polyp of cervix uteri Category: Medical Plan: Discussed with the patient the finding on ultrasound showing endocervical lesion possible polyp, recommended hysteroscopy D&C possible polypectomy/myomectomy. Will repeat OVI in few days if negative will schedule the procedure . Instructions given the patient to schedule preop visit within few days (3) Trichomonas contact, treated: Code(s): Z20.2 - Contact with and (suspected) exposure to infections with a predominantly sexual mode of transmission Category: Medical Plan: Instructions given the patient to complete her aortic course will repeat a GC/CT in few days. Instructions given the patient to schedule a OVI appointment within few days. All questions answered, the patient verbalized understanding Orders: Orders AMB Urinalysis Dipstick Today R31.29 - Other microscopic hematuria Coding Level of Care Code Est Pt Level 3 (17996) Diagnoses Microscopic hematuria R31.29 Endocervical polyp N84.1 Trichomonas contact, treated Z20.2
[2025-08-02 12:32] VITALS: BMI 32.2
--- OUTSIDE RECORDS SUMMARY | 2025-08-02 13:37 | XMS_ITS | Clinical Summary ---
Author Organization [facility] Address [address] [place] [address] Care Team Providers Care Geography Faculty Member Name Role Phone Devonte Crawford MD Primary Care Provider [phone] Surgical History Surgery Date Site/Laterality Comments CERVICAL BIOPSY W/ LOOP ELECTRODE EXCISION PROCEDURE: [place] CONIZATION CERVIX W/WO D&C RPR ELTRD EXC [...] Cervical Cancer Screening: P ap Smear 2007 HPV Vaccines (1 - 3-dose SCD M series) 2013 Depression Screening 11/03/2024 COVID-19 Vaccine ( - 2023-2 5 season) 2025 Influenza Vaccine (#1) 2025 RSV Immunization Adult Patie nts (1 - 1-dose 75+ series) 2061 HIB Vaccines Aged Out No longer eligi [...] age to complete this topic Care Teams Geography Faculty Member Relationship Specialty Start Date End Date Devonte Crawford MD [address] [place] [address] Dr [address] RIANNA Fowler PCP - General Internal Medicine 03/07/18
== END 2025-08-02 12:53 | disposition home or self-care (01) ==
LOC: HO.HWS 12:28
PROVIDERS: PCP Internal Medicine; Visit Provider Obstetrics & Gynecology
DX: R31.29 Other microscopic hematuria (principal); N84.1 Polyp of cervix uteri; Z20.2 Contact with and (suspected) exposure to infections with a predominantly sexual mode of transmission
CPT/HCPCS: 99213

== ENCOUNTER → 2025-08-02 12:28 | Outpatient (BNVA) | payer OTHER, SELFPAY | PROVIDERS: PCP Internal Medicine; Visit Provider Obstetrics & Gynecology | DX: Z71.2 Person consulting for explanation of examination or test findings (principal); R31.29 Other microscopic hematuria; N84.1 Polyp of cervix uteri | CPT/HCPCS: 81002; 99212 ==

== ENCOUNTER 2025-09-15 09:20 | Outpatient (REF) | payer OTHER, SELFPAY ==
[2025-09-15 16:46] LABS: CT PCR NOT DETECTED (Not Detect.); NG PCR NOT DETECTED (Not Detect.)
== END 2025-09-15 09:21 | disposition home or self-care (01) ==
LOC: HO.LNP 09:20
PROVIDERS: PCP Internal Medicine; Visit Provider Obstetrics & Gynecology
DX: N84.1 Polyp of cervix uteri (principal); A74.9 Chlamydial infection, unspecified
CPT/HCPCS: 87491; 87591; 99212

== ENCOUNTER 2025-09-15 09:20 | Outpatient (AMB) | payer OTHER, SELFPAY ==
--- NOTE | 2025-09-15 09:31 | MHC.OFFVIS ---
Vital Signs 09/15/25 09:33 Height 5 ft 2 in Weight 158 lb BMI 28.9 BP 114/76 Intake Visit Reasons: OVI/ Pre op Dowel Inspector Required: No Information Interpreted: non-clinical & clinical Residential Manager: Residential Manager Present (Diamond MCPHERSON) Accompanied by: Self / Same As Patient Allergies No Known Allergies (No Known Allergies*) Allergy (Mild, Verified 09/15/25 09:36) NOT APPLICABLE Is last menstrual period known: Yes Last menstrual period: 08/31/20 Post menopausal: No Patient : No Do you need a note to return to daycare/school/sports/work: Yes (for surgery on friday) HPI Comments Details: The patient is presenting for a test of cure. The patient took the antibiotics course; she informed her partner who was treated too. The patient reports no intercourse since then. 07/20/2025 pelvic ultrasound showed the following: IMPRESSION: Questionable 1 cm submucosal polypoid lesion in the endocervical canal. Recommend direct inspection. No ovarian torsion. [facility] Medical History Vitamin D deficiency Overweight (BMI 25.0-29.9) Left-sided low back pain with sciatica Dysuria Migraine with aura History of ectopic Obesity (BMI 30-39.9) Possible exposure to STD Fatigue Pelvic pain Ectopic Carpal tunnel syndrome History of fibromyalgia Hx of Lyme disease Surgical History RUQ abdominal pain H/O dilation and curettage H/O LEEP Family History Father CVD (cardiovascular disease) Diabetes mellitus Mother Hypertension History of fibromyalgia Paternal Aunt Ovarian cancer Paternal Grandmother History of breast cancer Social History Housing: Apartment Alcohol intake: never Patient Tobacco Use Status: Never used Tobacco Second Hand Smoke Exposure: No Substance Use Type: Marijuana Trauma History: with ex partner and father of her children. The children are in [facility] custody currently awaiting trial for unification. service: No Current occupational status: unemployed Female Reproductive History Menstrual Age of Menarche: 14 Date of last menstrual period: 08/31/20 Total pregnancies: 2 Full term: 2 Review of Systems Card Reports as per HPI and Reports no additional complaints Resp Reports as per HPI and Reports no additional complaints GI Reports as per HPI and Reports no additional complaints Reports as per HPI Physical Exam Vital Signs: Last Vital Signs BP 114/76 09/15/25 09:33 BMI result Body Mass Index 28.9 Const General: cooperative, healthy appearing and comfortable Resp Effort & Inspection: normal respiratory effort Auscultation: clear to auscultation bilaterally Percussion: percussion normal Cardio Palpation: normal PMI Rate: regular rate Rhythm: regular rhythm Heart sounds: no murmurs and no rubs Peripheral pulses: Peripheral pulses 2+ throughout GI Inspection: Yes normal to inspection Palpation (GI): Soft to palpation, nontender, no guarding, not rigid and No hepatosplenomegaly present Percussion: Yes normal to percussion Auscultation: normal bowel sounds Rectal Exam - Female: deferred Assessment & Plan Assessment & Plan (1) Endocervical polyp: Code(s): N84.1 - Polyp of cervix uteri Category: Medical Plan: Discussed with the patient the finding on ultrasound, recommended hysteroscopy D&C possible polypectomy/myomectomy. Discussed with the patient the procedure , all benefits and risks including but not limited to inability to complete the procedure , insufficient endometrial tissue for a complete evaluation of the endometrial cavity , bleeding, infection, possible need for blood transfusion with all its risk ( HIV,syphilis, Hepatitis, anaphylaxis shock, others..), injury to bladder, rectum, possible need for laparoscopy/laparotomy or hysterectomy. The patient verbalized understanding and signed the consent. Instructions given the patient to stay NPO after midnight the day prior to the procedure and to take only the specific medication (s) discussed the morning of the surgical procedure and to schedule a 2 week postoperative appointment (2) Chlamydia: Comment: Treated for OVI Code(s): A74.9 - Chlamydial infection, unspecified Category: Medical Plan: GC/CT collected will check the results and treat accordingly Orders: Orders CT NG by PCR Vag/Cerv Today A74.9 - Chlamydial infection, unspecified Coding Level of Care Code Est Pt Level 3 (78920) Diagnoses Endocervical polyp N84.1 Chlamydia A74.9
[2025-09-15 09:33] VITALS: BP 114/76; BMI 28.9
--- OUTSIDE RECORDS SUMMARY | 2025-09-15 10:38 | XMS_ITS | Clinical Summary ---
Author Organization [facility] Address [address] [place] [address] Care Team Providers Care Pencils Washer Name Role Phone Devonte Crawford MD Primary Care Provider [phone] Surgical History Surgery Date Site/Laterality Comments CERVICAL [...] series) 2013 Depression Screening 11/03/2024 COVID-19 Vaccine (1 - 2024-2 6 season) 2025 Influenza Vaccine (#1) 2025 RSV [...] age to complete this topic Care Teams Pencils Washer Relationship Specialty Start Date End Date Devonte Crawford MD [address] [place] [address] Dr [address] RIANNA Fowler PCP - General Internal Medicine 03/07/18
== END 2025-09-15 10:37 | disposition home or self-care (01) ==
LOC: HO.HWS 09:20
PROVIDERS: PCP Internal Medicine; Visit Provider Obstetrics & Gynecology
DX: N84.1 Polyp of cervix uteri (principal); A74.9 Chlamydial infection, unspecified
CPT/HCPCS: 99213

== ENCOUNTER 2025-10-07 07:42 | Day surgery (SDC) | payer OTHER, SELFPAY ==
--- OUTSIDE RECORDS SUMMARY | 2025-09-19 06:39 | XMS_ITS | Clinical Summary ---
Author Organization [facility] Address [address] [place] [address] Care Team Providers Care Sales Marketing Name Role Phone Devonte Crawford MD Primary Care Provider [phone] Surgical History Surgery Date Site/Laterality Comments CERVICAL BIOPSY W/ LOOP ELECTRODE EXCISION PROCEDURE: [place] CONIZATION CERVIX W/WO D&C RPR ELTRD EXC [...] age to complete this topic Care Teams Sales Marketing Relationship Specialty Start Date End Date Devonte Crawford MD [address] [place] [address] Dr [address] RIANNA Fowler PCP - General Internal Medicine 03/07/18
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
[2025-10-05 09:37] VITALS: BMI 28.9
[2025-10-07] VITALS (7 sets, daily range): BP systolic 104–136; BP diastolic 61–81; PULSE 56–68; RESP 12–25; TEMP 36.1–36.6; O2SAT 98–100
[2025-10-07 08:05] LABS: UPreg QC Valid YES
--- NOTE | 2025-10-07 08:29 | MHC.SHP ---
Pre-Procedural Eval Section A - 24 Hr Update-Section A only Date of Service: 10/07/25 The patient is an INPATIENT: No Changes since office visit: No Cold of Flu in the past 2 weeks, No New Medical Problems, No Changes in Medication and No Patient answered all questions The patient has been examined within 24 hours of the surgical procedure. The History & Physical has been completed within 30 days and I have reviewed it.: Yes Section B - Complete if H&P > 30 days Chief Complaint: Polyp of cervix uteri Allergies: Allergies Allergy/AdvReac Type Severity Reaction Status Date / Time No Known Allergies (No Known Allergy Mild NOT Verified 10/07/25 08:10 Allergies*) APPLICABLE Plan Diagnosis/Plan: Unchanged I have reviewed the history and physical and performed a pertinent physical examination on my patient. No changes have occurred unless specified. Time Spent With Patient Time: Total time managing care of this patient today ____ minutes.
--- NOTE | 2025-10-07 09:56 | P.BOP_ITS ---
Brief Operative Note Date of Service: 10/07/25 Pre-op diagnosis: Endocervical polyp by ultrasound Post-op diagnosis: same Procedure: Hysteroscopy D&C, Polypectomy Surgeon: Michel Duncan MD Anesthesia: GLMA Was an Cushion Assembler used for this Procedure?: No Estimated blood loss (mL): 0 Pathology: other (Endometrial Scrapping. Polyp) Condition: stable Disposition: PACU
--- NOTE | 2025-10-07 09:58 | W.PM.OPN ---
Operative Note Operative Note Date of Service: 10/07/25 Narrative: Preop Diagnosis: Endocervical polyp by US Operation: Diagnostic Hysteroscopy, Dilataion & Curettage and polypectomy Post Op Diagnosis: Endometrial Polyp QBL: Minimal Anesthesia: GLMA Surgeon: Michel Duncan MD Canvas Cutter Hand: None Complication: None Pathology: Endometrial Scrapings, endocervical polyp Procedure: The patient was put in the dorsal lithotomy position, scrubbed, and draped in the usual manner. A sterile speculum was inserted in the patient's vagina. The anterior lip of the cervix was grasped with a single tooth tenaculum. The cervix was dilated up to 5 mm, then the scope was inserted in the patient's cervix. Inspection revealed endocervix polyp uterine cavity looked normal with no evidence of abnormality. The Myosure Reach device was used; it was introduced through the operative channel and polypectomy done with no complications. The scope was then taken out from the uterine cavity, sharp curettings was carried on with minimal to moderate amount of tissues retrieved. At the end of the procedure, all instruments were taken out of the patient uterine and vaginal cavity. The single tooth tenaculum was removed and homeostasis was assured using pressure,. The patient tolerated the procedure well and was transferred to the PACU in a stable condition.
== END 2025-10-07 11:28 | disposition home or self-care (01) ==
PROVIDERS: PCP Internal Medicine; Visit Provider Obstetrics & Gynecology
PROC: 0UDB8ZZ Extraction of Endometrium, Via Natural or Artificial Opening Endoscopic (ICD-10-PCS; CPT 58558; principal; 2025-10-07 09:40)
DX: N84.1 Polyp of cervix uteri (principal); A74.9 Chlamydial infection, unspecified; R10.11 Right upper quadrant pain; R10.20 Pelvic and perineal pain unspecified side; E55.9 Vitamin D deficiency, unspecified; E66.3 Overweight; Z68.28 Body mass index [BMI] 28.0-28.9, adult; F12.90 Cannabis use, unspecified, uncomplicated; Z56.0 Unemployment, unspecified
CPT/HCPCS: 58558; 81025; 88305; J0131; J1100; J1885; J2003; J2250; J2405; J2704; J3010

== ENCOUNTER → 2025-10-07 07:42 | Outpatient (BNV) | payer OTHER, SELFPAY | PROVIDERS: PCP Internal Medicine; Visit Provider Obstetrics & Gynecology | DX: N84.1 Polyp of cervix uteri (principal) | CPT/HCPCS: 58558 ==

== ENCOUNTER 2025-10-17 10:33 | Outpatient (AMB) | payer OTHER, SELFPAY ==
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
[2025-10-17 10:43] VITALS: BP 116/80; PULSE 57; O2SAT 98; BMI 29.1
== END 2025-10-17 11:29 | disposition home or self-care (01) ==
LOC: HO.HMCH 10:34
PROVIDERS: PCP Internal Medicine; Visit Provider Internal Medicine
DX: M47.812 Spondylosis without myelopathy or radiculopathy, cervical region (principal); M54.50 Low back pain, unspecified; E66.9 Obesity, unspecified; Z68.29 Body mass index [BMI] 29.0-29.9, adult; R10.31 Right lower quadrant pain; G89.29 Other chronic pain; D25.9 Leiomyoma of uterus, unspecified; E55.9 Vitamin D deficiency, unspecified; M79.7 Fibromyalgia; F41.9 Anxiety disorder, unspecified; F32.A Depression, unspecified

== ENCOUNTER → 2025-10-17 10:33 | Outpatient (BNVA) | payer OTHER, SELFPAY | PROVIDERS: PCP Internal Medicine; Visit Provider Internal Medicine | DX: M47.812 Spondylosis without myelopathy or radiculopathy, cervical region (principal); R10.31 Right lower quadrant pain; G89.29 Other chronic pain; M54.50 Low back pain, unspecified; D25.9 Leiomyoma of uterus, unspecified; E55.9 Vitamin D deficiency, unspecified; M79.7 Fibromyalgia; F41.9 Anxiety disorder, unspecified; F32.A Depression, unspecified; E66.9 Obesity, unspecified; Z68.29 Body mass index [BMI] 29.0-29.9, adult | CPT/HCPCS: 96127; 99212 ==